=== PATIENT | male | born 1945 | race African-American/Black ===

== ENCOUNTER 2017-02-28 18:14 | Emergency (ER) | payer MEDICARE ==
[2017-02-28] MEDS ORDERED: MIDAZOLAM 2 MG/2 ML INJ ONE (18:28)
[2017-02-28] MEDS ORDERED: MIDAZOLAM 2 MG/2 ML INJ IV ONE (18:29)
[2017-02-28] MEDS ORDERED: NORMAL SALINE 1000 ML 1,000 ML IV ONE (18:29)
[2017-02-28 18:38] LABS: INTERNATIONAL RATION (INR) 1.01; PARTIAL THROMBOPLASTIN TIME 28.7 SEC (23.5-35.8)
--- NOTE | 2017-02-28 18:42 | ER Document Report ---
ED Neuro Symptoms/Deficit - General Stated Complaint: POSSIBLE SEIZURE Time Seen by Provider: 02/28/17 18:20 Mode of Arrival: Medic Information source: Emergency Med Personnel - [facility] Notes: 69-year-old -[place] male presents unresponsive. Apparently he was found by somebody at his house unresponsive. There was a heater on and something melting on top of it. It is reported he was completely unresponsive with dilated left pupil. Had complete left-sided weakness. Reported initially with a GCS of 3. We have no further history past or present otherwise. - Related Data Allergies/Adverse Reactions: No Known Allergies Allergy (Unverified 02/28/17 22:16) Past Medical History - Social History Smoking Status: Unknown if Ever Smoked Family History: Other - Unknown as patient completely unresponsive. Review of Systems - Review of Systems -: Yes ROS unobtainable due to patient's medical condition - Nonverbal and unresponsive Physical Exam - Vital signs Notes: Initial blood pressure 164/120. Oxygen saturation 95% on room air, heart rate 95, respiratory rate 14 blood sugar 145. Accesses a left AC 18-gauge. - Notes Notes: GENERAL: VS as per nursing doc. patient is a thin somewhat emaciated - [place] male. He is completely unresponsive to tactile verbal stimuli. He does have spontaneous eye opening with some abnormal flexion to painful stimuli and he is nonverbal. This is consistent with a GCS of 5. HEAD: Atraumatic, normocephalic. EYES: His gaze is fixed to the right side. Sclera anicteric ENT: Mucous membranes are somewhat dry. There is no obvious discoloration. No significant gag reflex. Wasting of facial musculature noted there is a flaccid left face. NECK: Thin, trachea is midline LUNGS: Rhonchi are noted, patient is hypoventilatory. HEART: Normal S1S2. Regular rate and rhythm without murmurs. Equal peripheral pulses. ABDOMEN: Soft, scaphoid, no obvious mass EXTREMITIES: No significant range of motion limitations. No edema. NEUROLOGICAL: GCS 5, flaccid left side noted. There is stiffness with range of motion of the right upper extremity right lower extremity. There was some right sided clonus noted. Appears to have neglect of the left side. PSYCH: Unresponsive SKIN: Warm, Dry, no cyanosis. Course - Re-evaluation Re-evalutation: 02/28/17 18:46 Spoke with the radiologist. Patient has a large right sided middle cerebral artery distribution CVA and process but without hemorrhage. He is therefore not a candidate as well there is no known last normal as the patient was found in this state. 02/28/17 18:49 spoke with [facility] and they will contact me back after they get a hold of the neuro unit. 02/28/17 19:[address] Rafiq Coronel from [facility]. They accept the patient for transfer. We still have no further information on this patient and patient is deemed an emergent transfer for further neurologic care.. He is care air will be transferring the patient. He did have a period of hypotension which quickly resolved to discontinuation of propofol as well as a fluid bolus. Reexamination shows the patient with bounding equal pulses. Breath sounds are decreased but symmetrical bilaterally. X-ray shows changes that appear emphysematous in nature. - Laboratory Result Diagrams: 02/28/17 18:18 02/28/17 18:18 - Diagnostic Test Radiology reviewed: Image reviewed, Reports reviewed - CT showed what appears to be a developing large right MCA distribution infarct - EKG Interpretation by Me EKG shows normal: Sinus rhythm - Heart rate 84, no clear ischemia. QTC 525, QRS normal duration Procedures - Intubation Orotracheal Airway evaluation: Normal anatomy, Neck immobility Intubation method: Orotracheal Blade type: Olsen Blade size: 4 Equipment used: Glidescope ETT size: 7.5 ETT secured at: Gums ETT secured at (cm): 23 Breath Sounds after Intubation: Equal End tidal CO2 confirmed: Yes Post Intubation Xray: Yes - X-ray pending but ordered Critical Care Note - Critical Care Note Total time excluding time spent on procedures (mins): 40 - This includes time spent on consultation with transferring ICU physician, repetitive evaluations, stabilization of hemodynamic instability. Discharge - Discharge Clinical Impression: CVA (cerebral vascular accident), Renal insufficiency Condition: Critical Disposition: [facility]
[2017-02-28 18:46] LABS: ABSOLUTE LYMPHOCYTES (AUTO) 1.4 10^3/uL (0.5-4.7); ABSOLUTE MONOCYTES (AUTO) 0.7 10^3/uL (0.1-1.4); BASOPHILS % (AUTO) 0.4 % (0-2); EOSINOPHILS % (AUTO) 0.1 % (0-6); HEMATOCRIT 44.4 % (37.9-51.0); HEMOGLOBIN 14.9 g/dL (13.5-17.0); LYMPHOCYTES % (AUTO) 19.2 % (13-45); MEAN CORPUSCULAR HEMOGLOBIN 29.2 pg (27.0-33.4); MEAN CORPUSCULAR HGB CONC 33.6 g/dL (32.0-36.0); MEAN CORPUSCULAR VOLUME 87 fl (80-97); MONOCYTES % (AUTO) 10.1 % (3-13); PLATELET COUNT 227 10^3/uL (150-450); RED BLOOD COUNT 5.11 10^6/uL (4.35-5.55); RED CELL DISTRIBUTION WIDTH 14.4 % (11.5-14.0); SEGMENTED NEUTROPHILS % (AUTO) 70.2 % (42-78); TOTAL CELLS COUNTED % (AUTO) 100 %; WHITE BLOOD COUNT 7.2 10^3/uL (4.0-10.5)
[2017-02-28] MEDS: PROPOFOL 100 ML IV PRN ×3 (18:51→19:26)
--- NOTE | 2017-02-28 18:54 | RADIOLOGY REPORT (SQ) ---
EXAM DESCRIPTION: CT HEAD WITHOUT COMPLETED DATE/TIME: 02/28/2017 6:41 pm REASON FOR STUDY: bed 3 stroke alert (intubated) COMPARISON: None. TECHNIQUE: Axial images acquired through the brain without intravenous contrast. Images reviewed wi th bone, brain and subdural windows. Images stored on PACS. All CT scanners at this facility use dose modulation, iterative reconstruction, and/or weight based d osing when appropriate to reduce radiation dose to as low as reasonably achievable (ALARA). [facility]: Dose Right [facility]: CareDose [facility]: Dose Right [facility]: Teradose 4D [facility]: JustInvesting RADIATION DOSE: mGy. LIMITATIONS: None. FINDINGS: VENTRICLES: Prominent. CEREBRUM: No acute hemorrhage. Faint hypodense area along the right MCA distribution concerning for developing infarction. Old appearing lacunar infarcts of the basal ganglia. Atrophic and microvascu lar ischemic changes. CEREBELLUM: No masses. No hemorrhage. No alteration of density. No evidence for acute infarction. EXTRAAXIAL SPACES: Mild age-related involutional change. No fluid collections. No masses. ORBITS AND GLOBE: No intra- or extraconal masses. Normal contour of globe without masses. CALVARIUM: No fracture. PARANASAL SINUSES: No fluid or mucosal thickening. SOFT TISSUES: Intubated. OTHER: Report called to Dr. tena at the time of study as stroke alert. IMPRESSION: No hemorrhage. The appearance concerning for developing infarction right MCA distributi on. EVIDENCE OF ACUTE STROKE: Yes report called. TECHNICAL DOCUMENTATION: JOB ID: [id number] Quality ID # [id number]: Final reports with documentation of one or more dose reduction techniques (e.g., Au tomated exposure control, adjustment of the mA and/or kV according to patient size, use of iterative reconstruction technique) 2010 [employer]- All Rights Reserved
[2017-02-28 19:10] LABS: ALANINE AMINOTRANSFERASE 39 U/L (21-72); ALKALINE PHOSPHATASE 61 U/L (38-126); ANION GAP 9 (5-19); ASPARTATE AMINO TRANSFERASE 47 U/L (17-59); BILIRUBIN,DIRECT 0.3 mg/dL (0.0-0.4); BLOOD UREA NITROGEN 44 mg/dL (7-20); CALCIUM 10.1 mg/dL (8.4-10.2); CARBON DIOXIDE 31 mmol/L (22-30); CHLORIDE 100 mmol/L (98-107); CREATINE KINASE 185 U/L (55-170); GLUCOSE 149 mg/dL (75-110); POTASSIUM 4.4 mmol/L (3.6-5.0); TOTAL PROTEIN 7.6 g/dL (6.3-8.2)
[2017-02-28 19:12] LABS: ALCOHOL < 10 mg/dL (NONE DETECTED)
[2017-02-28 19:17] LABS: CREATINE KINASE MB 1.22 ng/mL (<4.55)
[2017-02-28 19:26] LABS: TROPONIN I 0.053 ng/mL
--- NOTE | 2017-02-28 19:30 | EKG REPORT ---
SEVERITY:- ABNORMAL ECG - SINUS RHYTHM BORDERLINE T ABNORMALITIES, ANT-LAT LEADS PROLONGED QT INTERVAL : Confirmed by: Maria Isabel Guillen 28-Feb-2017 19:29:14
--- NOTE | 2017-02-28 19:32 | RADIOLOGY REPORT (SQ) ---
EXAM DESCRIPTION: CHEST SINGLE VIEW COMPLETED DATE/TIME: 02/28/2017 6:48 pm REASON FOR STUDY: bed 3 stroke alert (intubated) COMPARISON: None. EXAM PARAMETERS: NUMBER OF VIEWS: One view. TECHNIQUE: Single frontal radiographic view of the chest acquired. RADIATION DOSE: NA LIMITATIONS: None. FINDINGS: LUNGS AND PLEURA: Hyperinflation. Marked lucencies in the upper lobes which have the appe arance of large bullae. No focal infiltrates. No pleural effusion. MEDIASTINUM AND HILAR STRUCTURES: No masses. Contour normal. HEART AND VASCULAR STRUCTURES: Heart normal in size. Normal vasculature. BONES: No acute findings. HARDWARE: Endotracheal tube with the tip located 5.5 cm proximal to the andrea. OTHER: No other significant finding. IMPRESSION: 1. ENDOTRACHEAL TUBE APPEARS TO BE IN SATISFACTORY POSITION. 2. HYPERINFLATION WITH PROMINENT LUCENCIES IN THE LUNG APICES MOST LIKELY DUE TO LARGE BULLAE. DUE T O THE SIGNIFICANT LUCENCY, CANNOT ENTIRELY EXCLUDE PNEUMOTHORAX ALTHOUGH LESS LIKELY. RECOMMEND FOLL OWUP CT OF THE CHEST. TECHNICAL DOCUMENTATION: JOB ID: [id number]- All Rights Reserved
[2017-02-28] MEDS ORDERED: SUCCINYLCHOLINE CHLORIDE INJ 200 MG/10 ML VIAL ONE (21:56)
[2017-02-28 22:19] VITALS: BP 163/111
[2017-02-28] MEDS ORDERED: ETOMIDATE INJ/PF 20 MG/10 ML SDV IV ONE (22:22)
[2017-02-28] MEDS ORDERED: SUCCINYLCHOLINE CHLORIDE INJ 200 MG/10 ML VIAL IV ONE (22:23)
[2017-02-28] MEDS ORDERED: NORMAL SALINE 1000 ML 2,000 ML IV ONE (22:23)
== END 2017-02-28 20:40 | disposition short-term general hospital (02) ==
LOC: EDBD → ER 18:14 → MERGE 18:14 → ER 20:40
PROC: 0BH17EZ Insertion of Endotracheal Airway into Trachea, Via Natural or Artificial Opening (ICD-10-PCS; principal; 2017-02-28)
DX: I63.9 Cerebral infarction, unspecified (principal); N28.9 Disorder of kidney and ureter, unspecified
CPT/HCPCS: 31500; 93005; 99291; 36415; 87040; 82553; 80307; 82550; 83735; 85025; 85610; 85730; 87077; 80053; 84484; 83605; 71045; 70450; 93010; J2250; J2704; J0330; J7030

== ENCOUNTER 2017-05-23 19:50 | Inpatient (IN) | payer MEDICARE ==
[2017-05-23] MEDS ORDERED: ACETAMINOPHEN 650 MG SUPP.RECT PR ONE (20:10)
[2017-05-23] MEDS ORDERED: ALBUTEROL SULFATE 0.083% NEB 2.5 MG/3 ML AMPUL NEB ONE (20:14)
[2017-05-23] MEDS ORDERED: NORMAL SALINE 1000 ML 1,000 ML IV ONE (20:14)
[2017-05-23 20:48] LABS: INTERNATIONAL RATION (INR) 1.18; PROTHROMBIN TIME 15.6 SEC (11.4-15.4)
[2017-05-23 20:50] LABS: VENOUS BLOOD BASE EXCESS 8.5 mmol/L; VENOUS BLOOD HCO3 33.9 mmol/L (20-32); VENOUS BLOOD PCO2 48.7 mmHg (35-63); VENOUS BLOOD PH 7.46 (7.30-7.42)
--- NOTE | 2017-05-23 20:54 | RADIOLOGY REPORT (SQ) ---
EXAM DESCRIPTION: CHEST SINGLE VIEW COMPLETED DATE/TIME: 05/23/2017 8:24 pm REASON FOR STUDY: db COMPARISON: 02/25/2009 EXAM PARAMETERS: NUMBER OF VIEWS: One view. TECHNIQUE: Single frontal radiographic view of the chest acquired. RADIATION DOSE: NA LIMITATIONS: None. FINDINGS: LUNGS AND PLEURA: There is marked lucency in the upper lung pinon. The lungs are hyperex panded. A very large bulla is present in the left apex. Chronic changes are suggested in the right base. No acute infiltrate is appreciated. MEDIASTINUM AND HILAR STRUCTURES: No masses. Contour normal. HEART AND VASCULAR STRUCTURES: Heart normal in size. Normal vasculature. BONES: No acute findings. HARDWARE: Tracheostomy tube. OTHER: No other significant finding. 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 No acute cardiopulmonar y disease is appreciated. TECHNICAL DOCUMENTATION: JOB ID: [id number] [employer]- All Rights Reserved Reading location - IP/workstation name: [email or web address]
[2017-05-23 20:55] LABS: HEMATOCRIT 29.9 % (37.9-51.0); HEMOGLOBIN 9.8 g/dL (13.5-17.0); MEAN CORPUSCULAR HEMOGLOBIN 28.8 pg (27.0-33.4); MEAN CORPUSCULAR HGB CONC 32.8 g/dL (32.0-36.0); MEAN CORPUSCULAR VOLUME 88 fl (80-97); PLATELET COUNT 443 10^3/uL (150-450); RED BLOOD COUNT 3.41 10^6/uL (4.35-5.55); WHITE BLOOD COUNT 22.6 10^3/uL (4.0-10.5)
[2017-05-23 20:57] LABS: ALANINE AMINOTRANSFERASE 36 U/L (21-72); ALBUMIN 3.4 g/dL (3.5-5.0); ALKALINE PHOSPHATASE 88 U/L (38-126); ANION GAP 5 (5-19); ASPARTATE AMINO TRANSFERASE 38 U/L (17-59); BILIRUBIN,DIRECT 0.5 mg/dL (0.0-0.4); BILIRUBIN,TOTAL 0.7 mg/dL (0.2-1.3); BLOOD UREA NITROGEN 31 mg/dL (7-20); CALCIUM 9.5 mg/dL (8.4-10.2); CARBON DIOXIDE 37 mmol/L (22-30); CHLORIDE 91 mmol/L (98-107); GLUCOSE 153 mg/dL (75-110); SODIUM 133.1 mmol/L (137-145); TOTAL PROTEIN 8.1 g/dL (6.3-8.2)
[2017-05-23 21:09] LABS: ABSOLUTE LYMPHOCYTES# (MANUAL) 3.6 10^3/uL (0.5-4.7); ABSOLUTE MONOCYTES # (MANUAL) 0.9 10^3/uL (0.1-1.4); ABSOLUTE NEUTROPHILS# (MANUAL) 18.1 10^3/uL (1.7-8.2); BASOPHILS % (MANUAL) 0 % (0-2); EOSINOPHILS % (MANUAL) 0 % (0-6); LYMPHOCYTES % (MANUAL) 16 % (13-45); MONOCYTES % (MANUAL) 4 % (3-13); SEGMENTED NEUTROPHILS % (MAN) 80 % (42-78); TOTAL CELLS COUNTED 100
[2017-05-23 21:11] LABS: OVALOCYTES SLIGHT; PLATELET COMMENT ADEQUATE; PLATELET LARGE PRESENT; POLYCHROMASIA SLIGHT
--- NOTE | 2017-05-23 21:18 | EKG REPORT ---
SEVERITY:- ABNORMAL ECG - SINUS TACHYCARDIA PROBABLE INFERIOR INFARCT, OLD : Confirmed by: Maria Isabel Guillen 23-May-2017 21:17:56
[2017-05-23 22:04] LABS: AMORPHOUS SEDIMENT,URINE TRACE /HPF; APPEARANCE,URINE SLIGHTLY-CLOUDY; BILIRUBIN,URINE NEGATIVE (NEGATIVE); GLUCOSE, URINE NEGATIVE (NEGATIVE); KETONES,URINE NEGATIVE (NEGATIVE); LEUKOCYTE ESTERASE,URINE SMALL (NEGATIVE); NITRITE,URINE NEGATIVE (NEGATIVE); PROTEIN,URINE 30 mg/dL (NEGATIVE); URINE SPECIFIC GRAVITY 1.015
[2017-05-23] MEDS ORDERED: CEFTRIAXONE INJ 1000 MG VIAL IV ONE (22:04)
[2017-05-23] MEDS ORDERED: IPRATROPIUM/ALBUTEROL 0.5-2.5 MG/3 ML AMPUL NEB ONE (22:05)
[2017-05-23 22:08] LABS: COLOR,URINE YELLOW
[2017-05-23] MEDS ORDERED: CEFEPIME 1 GM/D5W RTU 1 GM/50 ML RTUPB IV ONE (22:15)
[2017-05-23] MEDS ORDERED: VANCOMYCIN HCL INJ 1000 MG VIAL IV ONE (22:17)
--- NOTE | 2017-05-23 23:18 | ER Document Report ---
ED Fever - General Chief Complaint: Fever Stated Complaint: FEVER Time Seen by Provider: 05/23/17 20:07 Mode of Arrival: Stretcher Information source: Emergency Med Personnel, Outside Facility Records TRAVEL OUTSIDE OF THE [place] IN LAST 30 DAYS: No - HPI Patient complains to provider of: Fever, respiratory distress Onset: This evening Onset/Duration: Gradual Associated symptoms: Productive cough, Fever Notes: Patient is a 71-year-old male [facility] for fever and respiratory distress, patient is nonverbal secondary to previous CVA and cannot provide any additional information - Related Data Allergies/Adverse Reactions: No Known Allergies Allergy (Unverified 07/31/10 16:58) Past Medical History - General Information source: Emergency Med Personnel, Outside Facility Records - Social History Smoking Status: Unknown if Ever Smoked Chew tobacco use (# tins/day): No Frequency of alcohol use: None Drug Abuse: None Family History: Other - Unknown as patient completely unresponsive. Patient has suicidal ideation: No Patient has homicidal ideation: No Renal/ Medical History: Denies: Hx Peritoneal Dialysis Review of Systems - Review of Systems -: Yes ROS unobtainable due to patient's medical condition Constitutional: Fever Respiratory: See HPI, Cough Physical Exam - Vital signs Vitals: Temp Resp Pulse Ox 104 F H 37 H 93 05/23/17 19:55 05/23/17 19:55 05/23/17 19:55 Interpretation: Tachycardic, Tachypneic, Febrile - General General appearance: Lethargic In distress: Moderate - HEENT Head: Atraumatic Eyes: Normal Conjunctiva: Normal Nasal: Purulent discharge Mucous membranes: Dry Pharynx: Normal Neck: Normal - Respiratory Respiratory status: Respiratory distress, Tachypnea Chest status: Nontender Breath sounds: Productive cough, Rhonchi Chest palpation: Normal - Cardiovascular Rhythm: Regular, Tachycardia - Abdominal Inspection: Normal - Back Back: Normal - Extremities General upper extremity: Normal inspection General lower extremity: Normal inspection - Neurological Veronica Coma Scale Eye Opening: Spontaneous Veronica Coma Scale Verbal: None Veronica Coma Scale Motor: Withdraws to Pain [place] Coma Scale Total: 9 - Skin Skin Temperature: Hot Skin Moisture: Moist Skin Color: Normal Course - Re-evaluation Re-evalutation: 05/23/17 23:53 Patient with leukocytosis, likely aspiration pneumonia reaction, discussed with hospitalist who agrees to admit for further evaluation and treatment - Vital Signs Vital signs: Temp Pulse Resp BP Pulse Ox 100.4 F 27 H 115/77 99 05/23/17 22:04 05/23/17 21:01 05/23/17 21:00 05/23/17 21:34 - Laboratory Result Diagrams: 05/23/17 20:15 05/23/17 20:15 Laboratory results interpreted by me: 05/23/17 05/23/17 05/23/17 20:15 20:15 20:15 WBC 22.6 H RBC 3.41 L Hgb 9.8 L Hct 29.9 L RDW 15.0 H Seg Neuts % (Manual) 80 H Abs Neuts (Manual) 18.1 H PT 15.6 H VBG pH VBG HCO3 Sodium 133.1 L Chloride 91 L Carbon Dioxide 37 H BUN 31 H Glucose 153 H Direct Bilirubin 0.5 H Albumin 3.4 L Urine Protein Urine Urobilinogen Ur Leukocyte Esterase Urine Ascorbic Acid 05/23/17 05/23/17 20:30 21:42 WBC RBC Hgb Hct RDW Seg Neuts % (Manual) Abs Neuts (Manual) PT VBG pH 7.46 H VBG HCO3 33.9 H Sodium Chloride Carbon Dioxide BUN Glucose Direct Bilirubin Albumin Urine Protein 30 H Urine Urobilinogen 2.0 H Ur Leukocyte Esterase SMALL H Urine Ascorbic Acid 40 H - Diagnostic Test Radiology reviewed: Image reviewed, Reports reviewed Discharge - Discharge Clinical Impression: Aspiration pneumonia Qualifiers: Aspiration pneumonia type: unspecified Laterality: unspecified laterality Lung location: unspecified part of lung Qualified Code(s): J69.0 - Pneumonitis due to inhalation of food and vomit UTI (urinary tract infection) Qualifiers: Urinary tract infection type: catheter-associated UTI Indwelling urinary catheter type: indwelling urethral catheter Encounter type: initial encounter Qualified Code(s): T83.511A - Infection and inflammatory reaction due to indwelling urethral catheter, initial encounter; N39.0 - Urinary tract infection , site not specified; N39.0 - Urinary tract infection, site not specified Sepsis Qualifiers: Sepsis type: sepsis due to unspecified organism Qualified Code(s): A41.9 - Sepsis, unspecified organism Condition: Serious Disposition: ADMITTED INPATIENT Admitting Provider: Hospitalist Unit Admitted: [facility]
[2017-05-23] MEDS ORDERED: ACETAMINOPHEN 325 MG TABLET PEG PRN (23:40)
[2017-05-23] MEDS ORDERED: DEXTROSE 40% GEL 15 GM TUBE PO PRN ×2 (23:40)
[2017-05-23] MEDS ORDERED: GLUCAGON,HUMAN RECOMB 1 MG INJ SUBCUT PRN (23:40)
[2017-05-23] MEDS ORDERED: DEXTROSE 50%-WATER 25 GM/50 ML DISP.SYRIN IV PRN ×2 (23:40)
[2017-05-24] MEDS: IPRATROPIUM/ALBUTEROL 0.5-2.5 MG/3 ML AMPUL NEB SCH ×4 (02:10→20:23)
[2017-05-24] MEDS: NORMAL SALINE 1000 ML 1,000 ML IV PRN ×3 (02:20→17:55)
[2017-05-24] MEDS: HEPARIN SOD (PORCINE) 5,000 UNIT/ML 1 ML SYRINGE SUBCUT SCH ×3 (05:35→21:38)
--- NOTE | 2017-05-24 05:52 | PDOC H&P ---
History of Present Illness Admission Date/PCP: 05/23/17 23:36 Patient complains of: Fever History of Present Illness: MASSIEL MCCORMACK JR is a 71 year old male with a past medical history of hypertension CVA with residual left-sided neglect, expressive aphasia, status post PEG and trach who is a [facility]term [place] [facility] resident presenting with fever and copious tracheostomy secretions. In the emergency room he is nonverbal and unable to provide history. Workup revealed a leukocytosis and contraction alkalosis. He started on empiric antibiotics and IV fluids and referred the hospitalist for admission. Past Medical History Cardiac Medical History: Reports: Hypertension Pulmonary Medical History: Reports: Bronchitis, Chronic Obstructive Pulmonary Disease (COPD) EENT Medical History: Reports: Other - Tracheostomy Neurological Medical History: Reports: Ischemic CVA Endocrine Medical History: Reports: None Renal/ Medical History: Reports: None Malignancy Medical History: Reports: None GI Medical History: Reports: None Musculoskeltal Medical History: Reports: Other - Left hemiparesis, with global muscular atrophy Skin Medical History: Reports: None Psychiatric Medical History: Reports: None Traumatic Medical History: Reports: None Hematology: Reports: None Infectious Medical History: Reports: None Social History Information Source: [facility] Records Lives with: Long Term Smoking Status: Former Smoker Frequency of Alcohol Use: None Hx Recreational Drug Use: Yes Drugs: Cocaine Hx Prescription Drug Abuse: No Family History Family History: CVA, Other - Unknown as patient completely unresponsive. Parental Family History Reviewed: Yes Children Family History Reviewed: Yes Sibling(s) Family History Reviewed.: Yes Medication/Allergy Allergies/Adverse Reactions: Penicillins Allergy (Verified 05/24/17 04:18) Review of Systems ROS unobtainable: Due to mental status Physical Exam Vital Signs: Temp Pulse Resp BP Pulse Ox 97.8 F 118 H 22 H 156/93 H 98 05/24/17 03:32 05/24/17 03:32 05/24/17 03:32 05/24/17 03:32 05/24/17 04:00 Intake & Output 05/22/17 05/23/17 05/24/17 11:59 11:59 11:59 Weight 58 kg General appearance: PRESENT: cooperative, mild distress, thin, other - Temporal wasting and generalized cachexia, following simple commands, Head exam: PRESENT: atraumatic, normocephalic Eye exam: PRESENT: other - Right lateral gaze with left-sided neglect Ear exam: PRESENT: normal external ear exam Mouth exam: PRESENT: dry mucosa Neck exam: PRESENT: tracheostomy. ABSENT: carotid bruit, JVD, lymphadenopathy, thyromegaly, tracheal deviation Respiratory exam: PRESENT: accessory muscle use, clear to auscultation anne, crackles, decreased breath sounds, prolonged expiratory phas, tachypnea. ABSENT : rales, rhonchi, wheezes Pulses: PRESENT: normal dorsalis pedis pul Vascular exam: PRESENT: normal capillary refill GI/Abdominal exam: PRESENT: normal bowel sounds, soft. ABSENT: distended, guarding, mass, organolmegaly, rebound, tenderness Rectal exam: PRESENT: deferred Extremities exam: PRESENT: full ROM. ABSENT: calf tenderness, clubbing, pedal edema Neurological exam: PRESENT: alert, awake, oriented to person, CN II-XII grossly intact, aphasic Psychiatric exam: PRESENT: appropriate affect, normal mood. ABSENT: homicidal ideation, suicidal ideation Skin exam: PRESENT: dry, intact, warm. 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 No acute cardiopulmonary disease is appreciated. Assessment & Plan - Diagnosis (1) Aspiration pneumonia Qualifiers: Aspiration pneumonia type: unspecified Laterality: unspecified laterality Lung location: unspecified part of lung Qualified Code(s): J69.0 - Pneumonitis due to inhalation of food and vomit Is this a current diagnosis for this admission?: Yes Plan: Tube feeds held for residual, empiric antibiotics including coverage for Pseudomonas given history. Aggressive pulmonary toilet. Follow-up CBC and blood culture (2) Metabolic alkalosis Is this a current diagnosis for this admission?: Yes Plan: Low chloride, elevated bicarb and BUN. Normal saline challenge reevaluate chemistry. (3) Sepsis Qualifiers: Sepsis type: sepsis due to unspecified organism Qualified Code(s): A41.9 - Sepsis, unspecified organism Is this a current diagnosis for this admission?: Yes Plan: Correction of #1, supportive measures. Follow-up CBC blood and urine culture (4) UTI (urinary tract infection) Qualifiers: Urinary tract infection type: catheter-associated UTI Indwelling urinary catheter type: indwelling urethral catheter Encounter type: initial encounter Qualified Code(s): T83.511A - Infection and inflammatory reaction due to indwelling urethral catheter, initial encounter; N39.0 - Urinary tract infection , site not specified; N39.0 - Urinary tract infection, site not specified Is this a current diagnosis for this admission?: Yes Plan: Unclear UTI versus colonization, follow-up urine culture - Time Time Spent: 30 to 50 Minutes - Inpatient Certification Medical Necessity: Need Close Monitoring Due to Risk of Patient Decompensation
[2017-05-24 07:57] LABS: ABSOLUTE LYMPHOCYTES (AUTO) 1.8 10^3/uL (0.5-4.7); ABSOLUTE MONOCYTES (AUTO) 1.2 10^3/uL (0.1-1.4); ABSOLUTE NEUT (AUTO) 13.7 10^3/uL (1.7-8.2); BASOPHILS % (AUTO) 0.2 % (0-2); EOSINOPHILS % (AUTO) 0.2 % (0-6); HEMATOCRIT 32.1 % (37.9-51.0); HEMOGLOBIN 10.3 g/dL (13.5-17.0); LYMPHOCYTES % (AUTO) 10.7 % (13-45); MEAN CORPUSCULAR HEMOGLOBIN 28.6 pg (27.0-33.4); MEAN CORPUSCULAR HGB CONC 32.2 g/dL (32.0-36.0); MEAN CORPUSCULAR VOLUME 89 fl (80-97); PLATELET COUNT 389 10^3/uL (150-450); RED BLOOD COUNT 3.61 10^6/uL (4.35-5.55); RED CELL DISTRIBUTION WIDTH 15.1 % (11.5-14.0); SEGMENTED NEUTROPHILS % (AUTO) 81.9 % (42-78); TOTAL CELLS COUNTED % (AUTO) 100 %; WHITE BLOOD COUNT 16.8 10^3/uL (4.0-10.5)
[2017-05-24 08:02] LABS: ALANINE AMINOTRANSFERASE 35 U/L (21-72); ALKALINE PHOSPHATASE 82 U/L (38-126); ANION GAP 9 (5-19); ASPARTATE AMINO TRANSFERASE 26 U/L (17-59); BILIRUBIN,DIRECT 0.4 mg/dL (0.0-0.4); BILIRUBIN,TOTAL 0.8 mg/dL (0.2-1.3); BLOOD UREA NITROGEN 27 mg/dL (7-20); CALCIUM 9.5 mg/dL (8.4-10.2); CARBON DIOXIDE 33 mmol/L (22-30); CHLORIDE 97 mmol/L (98-107); GLUCOSE 119 mg/dL (75-110); POTASSIUM 4.1 mmol/L (3.6-5.0); SODIUM 139.1 mmol/L (137-145); TOTAL PROTEIN 7.2 g/dL (6.3-8.2)
[2017-05-24] MEDS ORDERED: NORMAL SALINE 1000 ML 1,000 ML IV PRN (08:34)
[2017-05-24] MEDS ORDERED: VANCOMYCIN HCL 0 MG in DEXTROSE 5%-WATER 250 ML IV NR (08:45)
[2017-05-24] MEDS ORDERED: CEFEPIME 2 GM/D5W RTU 2 GM/50 ML RTUPB IV SCH (08:45)
[2017-05-24] MEDS: METRONIDAZOLE 500 MG/NS RTU 100 ML IV SCH ×3 (09:39→20:27)
--- NOTE | 2017-05-24 09:55 | PDOC CONSULTATION ---
Consultation Consult Date: 05/24/17 Consult reason:: sacral decubitus History of Present Illness Admission Date/PCP: 05/23/17 23:36 History of Present Illness: MASSIEL MCCORMACK JR is a 71 year old male, [place] resident, who presented to the ER with increased tracheostomy secretions, contaction alkalosis and admitted for rehydratoin. His initial w/u is overall negative for an infectious process at this time. I have been consulted for evaluation and treatment of a large foul smelling sacral decubitus. Past Medical History Cardiac Medical History: Reports: Hypertension Pulmonary Medical History: Reports: Bronchitis, Chronic Obstructive Pulmonary Disease (COPD) EENT Medical History: Reports: Other - Tracheostomy Neurological Medical History: Reports: Ischemic CVA Endocrine Medical History: Reports: None Renal/ Medical History: Reports: None Malignancy Medical History: Reports: None GI Medical History: Reports: None Musculoskeltal Medical History: Reports: Other - Left hemiparesis, with global muscular atrophy Skin Medical History: Reports: None Psychiatric Medical History: Reports: None Traumatic Medical History: Reports: None Hematology: Reports: None, Other - Tracheostomy Infectious Medical History: Reports: None Social History Lives with: Group Home Smoking Status: Former Smoker Frequency of Alcohol Use: None Hx Recreational Drug Use: Yes Drugs: Cocaine Hx Prescription Drug Abuse: No Family History Family History: CVA, Other - Unknown as patient completely unresponsive. Parental Family History Reviewed: No - n/a Children Family History Reviewed: Unknown Sibling(s) Family History Reviewed.: Unknown Medication/Allergy Allergies/Adverse Reactions: Penicillins Allergy (Verified 05/24/17 04:18) Physical Exam Vital Signs: Temp Pulse Resp BP Pulse Ox 98.2 F 111 H 20 119/94 H 100 05/24/17 08:13 05/24/17 08:13 05/24/17 08:13 05/24/17 08:13 05/24/17 08:13 Intake & Output 05/23/17 05/24/17 05/25/17 06:59 06:59 06:59 Intake Total 600 Output Total 400 Balance 200 Weight 58 kg General appearance: PRESENT: mild distress, other - patient appears hemaciated and not resposnive with fixed gaze Head exam: PRESENT: atraumatic Mouth exam: PRESENT: moist Neck exam: PRESENT: tracheostomy - with large amount of secretions Respiratory exam: PRESENT: clear to auscultation anne Cardiovascular exam: PRESENT: RRR GI/Abdominal exam: PRESENT: normal bowel sounds, soft, other - G-tube in the LUQ Skin exam: PRESENT: warm, other - large 10 cm in diameter devitalized sacral skin with subcutaneous tunnelling and undermined tissue, heavy foul smell Results Laboratory Results: 05/24/17 07:29 05/24/17 07:29 05/24/17 05/24/17 07:29 07:29 WBC 16.8 H RBC 3.61 L Hgb 10.3 L Hct 32.1 L MCV 89 MCH 28.6 MCHC 32.2 RDW 15.1 H Plt Count 389 Seg Neutrophils % 81.9 H Lymphocytes % 10.7 L Monocytes % 7.0 Eosinophils % 0.2 Basophils % 0.2 Absolute Neutrophils 13.7 H Absolute Lymphocytes 1.8 Absolute Monocytes 1.2 Absolute Eosinophils 0.0 Absolute Basophils 0.0 Sodium 139.1 Potassium 4.1 Chloride 97 L Carbon Dioxide 33 H Anion Gap 9 BUN 27 H Creatinine 0.71 Est GFR ( Amer) > 60 Est GFR (Non-Af Amer) > 60 Glucose 119 H Calcium 9.5 Total Bilirubin 0.8 AST 26 ALT 35 Alkaline Phosphatase 82 Total Protein 7.2 Albumin 3.0 L Impressions: Chest X-Ray 05/23/17 20:08 IMPRESSION: 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 No acute cardiopulmonary disease is appreciated. Assessment & Plan - Diagnosis (2) Metabolic alkalosis Is this a current diagnosis for this admission?: Yes - Plan Summary Plan Summary: A/ [facility] resident, with PEG and tracheostomy Large sacral decubitus P/ Please, notify us when patient is medically stable and able to tolerate GA or IV sedation so we can proceed with debridment of the sacral decubitus Consent will have to be obtained from his family
[2017-05-24] MEDS ORDERED: CEFEPIME HCL 2 GM in DEXTROSE 5%-WATER 50 ML IV SCH (10:00)
[2017-05-24] MEDS ORDERED: CEFEPIME 1 GM/D5W RTU 1 GM/50 ML RTUPB IV SCH (10:00)
[2017-05-24] MEDS: CEFEPIME HCL 2 GM in NORMAL SALINE 100 ML IV SCH ×2 (10:13→22:50)
[2017-05-24] MEDS ORDERED: VANCOMYCIN HCL 500 MG in DEXTROSE 5%-WATER 100 ML IV ONE (12:00)
--- NOTE | 2017-05-24 12:06 | Physician Advisory Note ---
Physician Advisor ProgressNote .: Pursuant to the plan for [facility], I have reviewed the medical record for this patient. Physician Advisor Statement: Please consider documenting, if you agree: 1. "Acute on Chronic Hypoxemic Respiratory Failure, usually only needs __L O2 via trach collar now labored breathing on 7L O2" (unless pt needs 7L O2 at baseline, in which there is at least "Chronic Hypoxemic Resp Failure") - increased work of breathing is nicely documented by nursing this AM: "labored", "accessory muscle use") 2. "Coccyx decubitus ulcer, stage 3-4, POA*" (nursing documented it is "unstageable", which itself indicates it must be at least stage 3) 3. "Pneumonia, suspect aspiration due to " (was there any tube feed material in resp secretions? witnessed choking w/high TF residuals? Pt bedbound/debilitated/on TFs already, w/malnutrition evident) 4. "Possible sepsis, ruled out" OR: "Possible sepsis, POA*, due to ____ [PNA?], evidenced by tachycardia/ leukocytosis/ , with associated due to sepsis" [evidence of organ dysfunction, not caused by something else]) 5. "Severe COPD" by CXR 6. "Chronic Lt hemiplegia s/p CVA" 7. "suspected protein-calorie malnutrition [state mild, mod, or severe] with BMI 26.7, __, ____[?wt loss, ]" - already documented to be on TFs, with temporal wasting & cachexia ... , already call center trainer consulted... [& note clinical importance such as (D) prolonged wound healing time, (E) delayed infxn clearance] Status: Approp'ly Inpatient status. Already 1 MN in hospital care, still w/ labored breathing, accessory muscle use this AM, O2 at 7L per trach collar, needs operative decub debridement but not until medically stabilized & able to tolerate sedation. Continues to have prominent leukocytosis, evidence of intravascular volume depletion. Thanks! CK *POA = Present On Adm
--- NOTE | 2017-05-24 14:08 | PDOC PROGRESS REPORT ---
Subjective Progress Note for:: 05/24/17 Subjective:: Patient is not verbal, extremely debilitated, thin, poorly nourished At the most establishes in the eye contact Appears in mild respiratory distress with a trach collar He is lethargic looking acute chronically ill Reason For Visit: PNA UTI Physical Exam Vital Signs: Temp Pulse Resp BP Pulse Ox 99.3 F 98 20 107/71 92 05/24/17 12:25 05/24/17 12:25 05/24/17 12:25 05/24/17 12:25 05/24/17 13:10 Intake & Output 05/23/17 05/24/17 05/25/17 00:59 00:59 00:59 Intake Total 600 Output Total 800 Balance -200 Weight 58 kg General appearance: PRESENT: mild distress, thin, other - Chronically debilitated Head exam: PRESENT: atraumatic, normocephalic Eye exam: PRESENT: conjunctiva pale, PERRLA. ABSENT: scleral icterus Neck exam: ABSENT: carotid bruit, JVD, lymphadenopathy, thyromegaly Respiratory exam: PRESENT: decreased breath sounds, symmetrical, tachypnea. ABSENT: accessory muscle use, chest wall tenderness, rhonchi, wheezes Cardiovascular exam: PRESENT: tachycardia. ABSENT: gallop Pulses: PRESENT: normal dorsalis pedis pul GI/Abdominal exam: PRESENT: normal bowel sounds, soft. ABSENT: distended, guarding, mass, organolmegaly, rebound, tenderness Rectal exam: PRESENT: deferred Extremities exam: PRESENT: full ROM. ABSENT: calf tenderness, clubbing, pedal edema Neurological exam: PRESENT: other - Lethargic arousable Difficult to assess Psychiatric exam: PRESENT: other - Cannot assess because of altered mentation Skin exam: PRESENT: other - Presacral area stage IV decubitus ulcer about 6 cm in diameter covered with necrotic skin yellowish color No drainage visualized Foul-smelling Results Laboratory Results: 05/24/17 07:29 05/24/17 07:29 05/24/17 05/24/17 07:29 07:29 WBC 16.8 H RBC 3.61 L Hgb 10.3 L Hct 32.1 L MCV 89 MCH 28.6 MCHC 32.2 RDW 15.1 H Plt Count 389 Seg Neutrophils % 81.9 H Lymphocytes % 10.7 L Monocytes % 7.0 Eosinophils % 0.2 Basophils % 0.2 Absolute Neutrophils 13.7 H Absolute Lymphocytes 1.8 Absolute Monocytes 1.2 Absolute Eosinophils 0.0 Absolute Basophils 0.0 Sodium 139.1 Potassium 4.1 Chloride 97 L Carbon Dioxide 33 H Anion Gap 9 BUN 27 H Creatinine 0.71 Est GFR ( Amer) > 60 Est GFR (Non-Af Amer) > 60 Glucose 119 H Calcium 9.5 Total Bilirubin 0.8 AST 26 ALT 35 Alkaline Phosphatase 82 Total Protein 7.2 Albumin 3.0 L Impressions: Chest X-Ray 05/23/17 20:08 IMPRESSION: 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 No acute cardiopulmonary disease is appreciated. Assessment & Plan - Diagnosis (1) Acute and chronic respiratory failure Is this a current diagnosis for this admission?: Yes (2) Tracheostomy in place Is this a current diagnosis for this admission?: Yes (3) S/P percutaneous endoscopic gastrostomy (PEG) tube placement Is this a current diagnosis for this admission?: Yes (4) Aspiration pneumonia Qualifiers: Aspiration pneumonia type: unspecified Laterality: unspecified laterality Lung location: unspecified part of lung Qualified Code(s): J69.0 - Pneumonitis due to inhalation of food and vomit Is this a current diagnosis for this admission?: Yes (5) Decubitus ulcer of sacral region, stage 3 Is this a current diagnosis for this admission?: Yes (6) Sepsis Qualifiers: Sepsis type: sepsis due to unspecified organism Qualified Code(s): A41.9 - Sepsis, unspecified organism Is this a current diagnosis for this admission?: Yes (7) UTI (urinary tract infection) Qualifiers: Urinary tract infection type: catheter-associated UTI Indwelling urinary catheter type: indwelling urethral catheter Encounter type: initial encounter Qualified Code(s): T83.511A - Infection and inflammatory reaction due to indwelling urethral catheter, initial encounter; N39.0 - Urinary tract infection , site not specified; N39.0 - Urinary tract infection, site not specified Is this a current diagnosis for this admission?: Yes (8) Protein-calorie malnutrition, severe Is this a current diagnosis for this admission?: Yes - Time Time Spent with patient: Patient is septic Sepsis secondary to stage III-IV decubitus ulcer of the presacral area, likely aspiration pneumonia and UTI Initial chest x-ray was normal We will broaden spectrum of antibiotic and treat the patient with cefepime and vancomycin and Flagyl Continue hydration Patient is behind and IV fluids; will give another bolus of 1000 mL of normal saline and continue hydration at 200 mL/h We will hold tube feedings for 24 hours until sepsis is resolving Continue O2 supplementation Continue nebs Surgical consult was obtained; wound will need debridement when patient's condition is stable Repeat labs in a.m. Time Spent with patient: 25-34 minutes
--- NOTE | 2017-05-24 14:54 | Physician Advisory Note ---
Physician Advisor ProgressNote .: Pursuant to the plan for [facility], I have reviewed the medical record for this patient. Physician Advisor Statement: Additional documentation point request, when time allows (sorry I forgot to mention in note earlier today): 1. Please, at least once (+ in DCSummary), document likely reasons CXR negative for infiltrate with this pneumonia - due to volume depletion? early in course of PNA? ... Thanks! CK
[2017-05-24] MEDS: VANCOMYCIN HCL 500 MG in DEXTROSE 5%-WATER 100 ML IV SCH (21:39)
[2017-05-24] MEDS ORDERED: METOPROLOL TARTRATE PF/INJ 5 MG/5 ML SDV IV ONE (22:45)
[2017-05-25] MEDS ORDERED: METOPROLOL TARTRATE PF/INJ 5 MG/5 ML SDV IV ONE (01:00)
[2017-05-25] MEDS: IPRATROPIUM/ALBUTEROL 0.5-2.5 MG/3 ML AMPUL NEB SCH ×4 (01:16→20:01)
[2017-05-25] MEDS: METRONIDAZOLE 500 MG/NS RTU 100 ML IV SCH ×4 (02:28→20:56)
[2017-05-25] MEDS: HEPARIN SOD (PORCINE) 5,000 UNIT/ML 1 ML SYRINGE SUBCUT SCH ×3 (05:15→22:28)
[2017-05-25] MEDS: METOPROLOL TARTRATE PF/INJ 5 MG/5 ML SDV IV SCH ×3 (05:16→17:37)
[2017-05-25 05:52] LABS: ABSOLUTE BASOPHILS # (AUTO) 0.1 10^3/uL (0.0-0.2); ABSOLUTE LYMPHOCYTES (AUTO) 1.8 10^3/uL (0.5-4.7); ABSOLUTE MONOCYTES (AUTO) 1.8 10^3/uL (0.1-1.4); ABSOLUTE NEUT (AUTO) 15.1 10^3/uL (1.7-8.2); BASOPHILS % (AUTO) 0.4 % (0-2); EOSINOPHILS % (AUTO) 0.1 % (0-6); HEMATOCRIT 28.6 % (37.9-51.0); HEMOGLOBIN 9.1 g/dL (13.5-17.0); LYMPHOCYTES % (AUTO) 9.5 % (13-45); MEAN CORPUSCULAR HEMOGLOBIN 27.9 pg (27.0-33.4); MEAN CORPUSCULAR HGB CONC 31.7 g/dL (32.0-36.0); MEAN CORPUSCULAR VOLUME 88 fl (80-97); MONOCYTES % (AUTO) 9.8 % (3-13); PLATELET COUNT 316 10^3/uL (150-450); RED BLOOD COUNT 3.25 10^6/uL (4.35-5.55); RED CELL DISTRIBUTION WIDTH 14.8 % (11.5-14.0); SEGMENTED NEUTROPHILS % (AUTO) 80.2 % (42-78); TOTAL CELLS COUNTED % (AUTO) 100 %; WHITE BLOOD COUNT 18.8 10^3/uL (4.0-10.5)
[2017-05-25 06:07] LABS: ALANINE AMINOTRANSFERASE 25 U/L (21-72); ALBUMIN 2.9 g/dL (3.5-5.0); ALKALINE PHOSPHATASE 81 U/L (38-126); ANION GAP 9 (5-19); ASPARTATE AMINO TRANSFERASE 34 U/L (17-59); BILIRUBIN,DIRECT 0.7 mg/dL (0.0-0.4); BILIRUBIN,TOTAL 0.8 mg/dL (0.2-1.3); BLOOD UREA NITROGEN 22 mg/dL (7-20); CALCIUM 9.5 mg/dL (8.4-10.2); CARBON DIOXIDE 29 mmol/L (22-30); CHLORIDE 104 mmol/L (98-107); GLUCOSE 112 mg/dL (75-110); POTASSIUM 3.6 mmol/L (3.6-5.0); SODIUM 142.2 mmol/L (137-145); TOTAL PROTEIN 7.1 g/dL (6.3-8.2)
[2017-05-25] MEDS: VANCOMYCIN HCL 500 MG in DEXTROSE 5%-WATER 100 ML IV SCH ×2 (09:27→22:27)
[2017-05-25] MEDS ORDERED: METOPROLOL TARTRATE PF/INJ 5 MG/5 ML SDV IV SCH (10:00)
[2017-05-25] MEDS ORDERED: CEFEPIME HCL 2 GM in NORMAL SALINE 100 ML IV ONE (11:00)
[2017-05-25] MEDS ORDERED: FUROSEMIDE INJ/PF 20 MG/2 ML SDV IV ONE (18:01)
[2017-05-25] MEDS ORDERED: ACETAMINOPHEN 325 MG TABLET PEG PRN (18:10)
[2017-05-25] MEDS ORDERED: GUAIFENESIN SYRP 200 MG/10 ML UDC PEG PRN (18:10)
--- NOTE | 2017-05-25 18:10 | PDOC PROGRESS REPORT ---
Subjective Progress Note for:: 05/25/17 Subjective:: Patient's condition is unchanged Is not verbal He appears more tachypneic; with low-grade fever Oxygenation is still maintained with a trach collar at 40% Reason For Visit: PNA UTI Physical Exam Vital Signs: Temp Pulse Resp BP Pulse Ox 99.0 F 99 20 113/68 94 05/25/17 15:17 05/25/17 15:17 05/25/17 15:17 05/25/17 15:17 05/25/17 16:37 Intake & Output 05/24/17 05/25/17 05/26/17 00:59 00:59 00:59 Intake Total 2900 1200 Output Total 1200 375 Balance 1700 825 Weight 58 kg 63.1 kg General appearance: PRESENT: mild distress - Tachypnea, looks ill Not establishing an eye contact Thin Head exam: PRESENT: atraumatic, normocephalic Eye exam: PRESENT: conjunctiva pale, EOMI, PERRLA Neck exam: PRESENT: JVD. ABSENT: carotid bruit, lymphadenopathy, thyromegaly Respiratory exam: PRESENT: rhonchi - Bilaterally, tachypnea. ABSENT: accessory muscle use Cardiovascular exam: PRESENT: tachycardia. ABSENT: rubs, systolic murmur Pulses: PRESENT: normal dorsalis pedis pul Vascular exam: PRESENT: normal capillary refill GI/Abdominal exam: PRESENT: normal bowel sounds, soft. ABSENT: distended, guarding, mass, organolmegaly, rebound, tenderness Extremities exam: PRESENT: full ROM. ABSENT: calf tenderness, clubbing, pedal edema Neurological exam: PRESENT: awake Skin exam: PRESENT: dry, intact, warm. ABSENT: cyanosis, rash Results Laboratory Results: 05/25/17 05:00 05/25/17 05:00 05/25/17 05/25/17 05:00 05:00 WBC 18.8 H RBC 3.25 L Hgb 9.1 L Hct 28.6 L MCV 88 MCH 27.9 MCHC 31.7 L RDW 14.8 H Plt Count 316 Seg Neutrophils % 80.2 H Lymphocytes % 9.5 L Monocytes % 9.8 Eosinophils % 0.1 Basophils % 0.4 Absolute Neutrophils 15.1 H Absolute Lymphocytes 1.8 Absolute Monocytes 1.8 H Absolute Eosinophils 0.0 Absolute Basophils 0.1 Sodium 142.2 Potassium 3.6 Chloride 104 Carbon Dioxide 29 Anion Gap 9 BUN 22 H Creatinine 0.71 Est GFR ( Amer) > 60 Est GFR (Non-Af Amer) > 60 Glucose 112 H Calcium 9.5 Phosphorus 4.0 Magnesium 1.9 Total Bilirubin 0.8 AST 34 ALT 25 Alkaline Phosphatase 81 Total Protein 7.1 Albumin 2.9 L Impressions: Chest X-Ray 05/23/17 20:08 IMPRESSION: 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 No acute cardiopulmonary disease is appreciated. Assessment & Plan - Diagnosis (1) Acute and chronic respiratory failure Is this a current diagnosis for this admission?: Yes Plan: Likely secondary to pneumonia Initial chest x-ray did not show any infiltrate but copious secretions have been suctioned from tracheostomy Culture of tracheal aspirate was obtained 05/24/17 13:05 Gram Stain - Preliminary Tracheal Aspirate Sputum Culture - Preliminary Gram Negative Rods Gram Positive Cocci Clusters Normal Dalila Absent We will repeat chest x-ray in a.m. Patient does sound somewhat fluid overloaded; we will give him 20 mg of IV Lasix and discontinue IV fluids Patient is getting about 3500 mL of IV fluids per 24 hours with antibiotics (2) Tracheostomy in place Is this a current diagnosis for this admission?: Yes (3) S/P percutaneous endoscopic gastrostomy (PEG) tube placement Is this a current diagnosis for this admission?: Yes (4) Aspiration pneumonia Qualifiers: Aspiration pneumonia type: unspecified Laterality: unspecified laterality Lung location: unspecified part of lung Qualified Code(s): J69.0 - Pneumonitis due to inhalation of food and vomit Is this a current diagnosis for this admission?: Yes (5) Decubitus ulcer of sacral region, stage 3 Is this a current diagnosis for this admission?: Yes Plan: Gram-positive cocci grew from decubitus ulcer Identification sensitivity are pending (6) Sepsis Qualifiers: Sepsis type: sepsis due to unspecified organism Qualified Code(s): A41.9 - Sepsis, unspecified organism Is this a current diagnosis for this admission?: Yes (7) UTI (urinary tract infection) Qualifiers: Urinary tract infection type: catheter-associated UTI Indwelling urinary catheter type: indwelling urethral catheter Encounter type: initial encounter Qualified Code(s): T83.511A - Infection and inflammatory reaction due to indwelling urethral catheter, initial encounter; N39.0 - Urinary tract infection , site not specified; N39.0 - Urinary tract infection, site not specified Is this a current diagnosis for this admission?: Yes Plan: 05/24/17 11:46 Gram Stain - Preliminary Sacrum - Decubitis Ulcer Wound Culture - Preliminary Gram Positive Cocci Clusters 05/23/17 21:42 Urine Culture - Preliminary Catheterized Urine Gram Positive Cocci In Chains Gram-positive cocci grew from the urine (8) Protein-calorie malnutrition, severe Is this a current diagnosis for this admission?: Yes Plan: Will initiate tube feedings Obtain dietitian consult in a.m. Patient appears extremely undernourished - Time Time Spent with patient: Patient's condition is extremely poor Palliative care consult was obtained Continue present management Patient's condition is stable he may go to the OR for debridement of the sacral wound Time Spent with patient: 25-34 minutes
[2017-05-25] MEDS ORDERED: (PENDING PHARMACY ID) (Dextran 70/Hypromellose [Artificial Tears] 1 DROP) OU SCH (22:00)
[2017-05-25] MEDS: POLYVINYL ALCOHOL 1.4% OPH SOLN 15 ML OU SCH (22:28)
[2017-05-25 22:29] LABS: VANCOMYCIN,TROUGH 10.5 ug/mL (5.0-20.0)
[2017-05-25] MEDS: ATORVASTATIN CALCIUM 40 MG TABLET PEG SCH (22:29)
[2017-05-25] MEDS: METOPROLOL TARTRATE 25 MG TABLET PEG SCH (22:29)
[2017-05-26] MEDS: DILTIAZEM HCL 30 MG TABLET PEG SCH ×5 (00:41→23:28)
[2017-05-26] MEDS: IPRATROPIUM/ALBUTEROL 0.5-2.5 MG/3 ML AMPUL NEB SCH ×4 (01:43→20:01)
[2017-05-26] MEDS: POLYVINYL ALCOHOL 1.4% OPH SOLN 15 ML OU SCH ×6 (04:27→21:56)
[2017-05-26] MEDS: METRONIDAZOLE 500 MG/NS RTU 100 ML IV SCH ×4 (04:27→20:13)
[2017-05-26] MEDS: HEPARIN SOD (PORCINE) 5,000 UNIT/ML 1 ML SYRINGE SUBCUT SCH ×3 (06:25→21:56)
--- NOTE | 2017-05-26 08:49 | PDOC PROGRESS REPORT ---
Subjective Progress Note for:: 05/26/17 Subjective:: Patient's condition is unchanged Is not verbal Patient is still tachypneic On the monitor is in a sinus tachycardia Urine culture came back enterococcus VRE CT of the chest was performed yesterday and showed bullous emphysematous changes without clear infiltrate Blood culture is positive for gram-positive cocci Reason For Visit: PNA UTI Physical Exam Vital Signs: Temp Pulse Resp BP Pulse Ox 98.6 F 102 H 20 138/78 H 94 05/26/17 03:54 05/26/17 03:54 05/26/17 03:54 05/26/17 03:54 05/26/17 04:00 Intake & Output 05/25/17 05/26/17 05/27/17 00:59 00:59 00:59 Intake Total 2900 2030 665 Output Total 1200 700 100 Balance 1700 1330 565 Weight 58 kg 63.1 kg 63 kg General appearance: PRESENT: mild distress - Tachypnea, looks ill Not establishing an eye contact Thin Head exam: PRESENT: atraumatic, normocephalic Eye exam: PRESENT: conjunctiva pale, EOMI, PERRLA Neck exam: PRESENT: JVD. ABSENT: carotid bruit, lymphadenopathy, thyromegaly Respiratory exam: PRESENT: rhonchi - Bilaterally, tachypnea. ABSENT: accessory muscle use Cardiovascular exam: PRESENT: tachycardia. ABSENT: rubs, systolic murmur Pulses: PRESENT: normal dorsalis pedis pul Vascular exam: PRESENT: normal capillary refill GI/Abdominal exam: PRESENT: normal bowel sounds, soft. ABSENT: distended, guarding, mass, organolmegaly, rebound, tenderness Extremities exam: PRESENT: full ROM. ABSENT: calf tenderness, clubbing, pedal edema Neurological exam: PRESENT: awake Skin exam: PRESENT: dry, intact, warm. 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 No acute cardiopulmonary disease is appreciated. Assessment & Plan - Diagnosis (1) Acute and chronic respiratory failure Is this a current diagnosis for this admission?: Yes (2) Tracheostomy in place Is this a current diagnosis for this admission?: Yes (3) S/P percutaneous endoscopic gastrostomy (PEG) tube placement Is this a current diagnosis for this admission?: Yes (4) Aspiration pneumonia Qualifiers: Aspiration pneumonia type: unspecified Laterality: unspecified laterality Lung location: unspecified part of lung Qualified Code(s): J69.0 - Pneumonitis due to inhalation of food and vomit Is this a current diagnosis for this admission?: Yes (5) Decubitus ulcer of sacral region, stage 3 Is this a current diagnosis for this admission?: Yes (6) Sepsis Qualifiers: Sepsis type: sepsis due to unspecified organism Qualified Code(s): A41.9 - Sepsis, unspecified organism Is this a current diagnosis for this admission?: Yes Plan: 05/24/17 13:05 Gram Stain - Final Tracheal Aspirate Sputum Culture - Preliminary Gram Negative Rods Gram Positive Cocci Clusters Gram Negative Rods#2 Normal Dalila Absent 05/24/17 11:46 Gram Stain - Preliminary Sacrum - Decubitis Ulcer Wound Culture - Preliminary Gram Positive Cocci Clusters 05/23/17 21:42 Urine Culture - Final Catheterized Urine Vre (E.faecalis) 05/23/17 20:30 Blood Culture - Preliminary Blood Gram Positive Cocci At this time there is no evidence of pneumonia Sepsis likely secondary to large stage IV decubitus ulcer in the sacral area Sepsis secondary to [id number] cocci Sepsis secondary to VRE UTI Revised antibiotic management DC vancomycin and initiate linezolid IV Continue other antibiotics Continue IV fluids (7) UTI (urinary tract infection) Qualifiers: Urinary tract infection type: catheter-associated UTI Indwelling urinary catheter type: indwelling urethral catheter Encounter type: initial encounter Qualified Code(s): T83.511A - Infection and inflammatory reaction due to indwelling urethral catheter, initial encounter; N39.0 - Urinary tract infection , site not specified; N39.0 - Urinary tract infection, site not specified Is this a current diagnosis for this admission?: Yes (8) Protein-calorie malnutrition, severe Is this a current diagnosis for this admission?: Yes Plan: Resume tube feedings - Time Time Spent with patient: Patient's condition is certainly guarded Noted that the leukocytosis is still persistent Patient remains hemodynamically stable Time Spent with patient: 25-34 minutes
[2017-05-26] MEDS: POLYETHYLENE GLYCOL 3350 POWDER 17 GM/1 PACKET PEG SCH (09:41)
[2017-05-26] MEDS: ASCORBIC ACID 500 MG TABLET PEG SCH (09:42)
[2017-05-26] MEDS: METOPROLOL TARTRATE 25 MG TABLET PEG SCH ×2 (09:42→21:56)
[2017-05-26] MEDS: FOLIC ACID 1 MG TABLET PEG SCH (09:42)
[2017-05-26] MEDS: DOCUSATE SODIUM 100 MG CAPSULE PO SCH ×2 (09:42→18:41)
[2017-05-26] MEDS: CHOLECALCIFEROL (D3) 1,000 UNIT TABLET PEG SCH (09:42)
[2017-05-26] MEDS: LINEZOLID 300 ML IV SCH ×2 (09:43→21:56)
[2017-05-26] MEDS: MULTIVITAMIN ORAL LIQUID 60 ML PO SCH (09:44)
[2017-05-26] MEDS ORDERED: (PENDING PHARMACY ID) (Cholecalciferol (Vitamin D3) [Vitamin D3] 2,000 UNIT) PEG SCH (10:00)
[2017-05-26] MEDS ORDERED: MULTIVITAMIN TABLET PO SCH (10:00)
[2017-05-26 10:18] LABS: ABSOLUTE MONOCYTES (AUTO) 1.1 10^3/uL (0.1-1.4); ABSOLUTE NEUT (AUTO) 11.2 10^3/uL (1.7-8.2); BASOPHILS % (AUTO) 0.1 % (0-2); EOSINOPHILS % (AUTO) 0.1 % (0-6); HEMATOCRIT 25.5 % (37.9-51.0); HEMOGLOBIN 8.3 g/dL (13.5-17.0); LYMPHOCYTES % (AUTO) 7.6 % (13-45); MEAN CORPUSCULAR HEMOGLOBIN 28.7 pg (27.0-33.4); MEAN CORPUSCULAR HGB CONC 32.7 g/dL (32.0-36.0); MEAN CORPUSCULAR VOLUME 88 fl (80-97); PLATELET COUNT 366 10^3/uL (150-450); RED CELL DISTRIBUTION WIDTH 14.9 % (11.5-14.0); SEGMENTED NEUTROPHILS % (AUTO) 84.2 % (42-78); TOTAL CELLS COUNTED % (AUTO) 100 %; WHITE BLOOD COUNT 13.3 10^3/uL (4.0-10.5)
[2017-05-26 10:23] LABS: VENOUS BLOOD HCO3 26.5 mmol/L (20-32); VENOUS BLOOD PCO2 40.8 mmHg (35-63); VENOUS BLOOD PH 7.43 (7.30-7.42)
[2017-05-26] MEDS: CEFEPIME HCL 2 GM in DEXTROSE 5%-WATER 50 ML IV SCH ×4 (10:37→23:28)
[2017-05-26 10:40] LABS: ANION GAP 11 (5-19); BLOOD UREA NITROGEN 23 mg/dL (7-20); CALCIUM 9.7 mg/dL (8.4-10.2); CARBON DIOXIDE 28 mmol/L (22-30); CHLORIDE 106 mmol/L (98-107); GLUCOSE 149 mg/dL (75-110); POTASSIUM 3.3 mmol/L (3.6-5.0); SODIUM 144.6 mmol/L (137-145)
[2017-05-26] MEDS: ATORVASTATIN CALCIUM 40 MG TABLET PEG SCH (21:56)
[2017-05-27] MEDS: IPRATROPIUM/ALBUTEROL 0.5-2.5 MG/3 ML AMPUL NEB SCH ×4 (01:35→20:18)
[2017-05-27] MEDS: POLYVINYL ALCOHOL 1.4% OPH SOLN 15 ML OU SCH ×6 (02:41→22:26)
[2017-05-27] MEDS: METRONIDAZOLE 500 MG/NS RTU 100 ML IV SCH ×4 (02:41→20:13)
[2017-05-27 05:17] LABS: ABSOLUTE LYMPHOCYTES (AUTO) 1.2 10^3/uL (0.5-4.7); ABSOLUTE NEUT (AUTO) 9.3 10^3/uL (1.7-8.2); BASOPHILS % (AUTO) 0.2 % (0-2); EOSINOPHILS % (AUTO) 0.2 % (0-6); HEMATOCRIT 25.5 % (37.9-51.0); HEMOGLOBIN 8.4 g/dL (13.5-17.0); LYMPHOCYTES % (AUTO) 10.2 % (13-45); MEAN CORPUSCULAR HEMOGLOBIN 28.6 pg (27.0-33.4); MEAN CORPUSCULAR HGB CONC 32.7 g/dL (32.0-36.0); MEAN CORPUSCULAR VOLUME 87 fl (80-97); MONOCYTES % (AUTO) 8.9 % (3-13); PLATELET COUNT 359 10^3/uL (150-450); RED BLOOD COUNT 2.92 10^6/uL (4.35-5.55); SEGMENTED NEUTROPHILS % (AUTO) 80.5 % (42-78); TOTAL CELLS COUNTED % (AUTO) 100 %; WHITE BLOOD COUNT 11.5 10^3/uL (4.0-10.5)
[2017-05-27 05:35] LABS: ANION GAP 11 (5-19); BLOOD UREA NITROGEN 20 mg/dL (7-20); CALCIUM 9.7 mg/dL (8.4-10.2); CARBON DIOXIDE 27 mmol/L (22-30); CHLORIDE 106 mmol/L (98-107); GLUCOSE 146 mg/dL (75-110); POTASSIUM 3.2 mmol/L (3.6-5.0); SODIUM 143.7 mmol/L (137-145)
[2017-05-27] MEDS: HEPARIN SOD (PORCINE) 5,000 UNIT/ML 1 ML SYRINGE SUBCUT SCH ×3 (05:56→22:26)
[2017-05-27] MEDS: DILTIAZEM HCL 30 MG TABLET PEG SCH ×3 (05:56→17:23)
[2017-05-27] MEDS ORDERED: POTASSI CL 20 MEQ/50 ML RIDER 20 MEQ/50 ML RTUPB IV SCH (09:32)
--- NOTE | 2017-05-27 09:52 | PDOC PROGRESS REPORT ---
Subjective Progress Note for:: 05/27/17 Subjective:: Patient's condition is very much unchanged He is not febrile He appears less dyspneic and is clinically stable Still not verbal not establishing good eye contact Patient's antibiotics were reviewed as cultures are now available Reason For Visit: PNA UTI Physical Exam Vital Signs: Temp Pulse Resp BP Pulse Ox 98.7 F 94 20 114/80 100 05/27/17 03:08 05/27/17 08:50 05/27/17 08:50 05/27/17 03:08 05/27/17 08:50 Intake & Output 05/26/17 05/27/17 05/28/17 00:59 00:59 00:59 Intake Total 2030 1294 1062 Output Total 700 825 200 Balance 1330 469 862 Weight 63.1 kg 63 kg 64.2 kg General appearance: PRESENT: No distress looks ill not establishing an eye contact Thin Head exam: PRESENT: atraumatic, normocephalic Eye exam: PRESENT: conjunctiva pale, EOMI, PERRLA Neck exam: PRESENT: JVD. ABSENT: carotid bruit, lymphadenopathy, thyromegaly Respiratory exam: PRESENT: Decreased breath sounds bilaterally, ABSENT: accessory muscle use Cardiovascular exam: PRESENT: tachycardia. ABSENT: rubs, systolic murmur Pulses: PRESENT: normal dorsalis pedis pul Vascular exam: PRESENT: normal capillary refill GI/Abdominal exam: PRESENT: normal bowel sounds, soft. ABSENT: distended, guarding, mass, organolmegaly, rebound, tenderness Extremities exam: PRESENT: full ROM. ABSENT: calf tenderness, clubbing, pedal edema Neurological exam: PRESENT: awake Skin exam: PRESENT: dry, intact, warm. ABSENT: cyanosis, rash Results Laboratory Results: 05/27/17 04:38 05/27/17 04:38 05/26/17 05/26/17 05/26/17 10:03 10:03 10:03 WBC 13.3 H RBC 2.90 L Hgb 8.3 L Hct 25.5 L MCV 88 MCH 28.7 MCHC 32.7 RDW 14.9 H Plt Count 366 Seg Neutrophils % 84.2 H Lymphocytes % 7.6 L Monocytes % 8.0 Eosinophils % 0.1 Basophils % 0.1 Absolute Neutrophils 11.2 H Absolute Lymphocytes 1.0 Absolute Monocytes 1.1 Absolute Eosinophils 0.0 Absolute Basophils 0.0 VBG pH 7.43 H VBG pCO2 40.8 VBG HCO3 26.5 VBG Base Excess 2.0 Sodium 144.6 Potassium 3.3 L Chloride 106 Carbon Dioxide 28 Anion Gap 11 BUN 23 H Creatinine 0.70 Est GFR ( Amer) > 60 Est GFR (Non-Af Amer) > 60 Glucose 149 H Calcium 9.7 05/27/17 05/27/17 04:38 04:38 WBC 11.5 H RBC 2.92 L Hgb 8.4 L Hct 25.5 L MCV 87 MCH 28.6 MCHC 32.7 RDW 15.0 H Plt Count 359 Seg Neutrophils % 80.5 H Lymphocytes % 10.2 L Monocytes % 8.9 Eosinophils % 0.2 Basophils % 0.2 Absolute Neutrophils 9.3 H Absolute Lymphocytes 1.2 Absolute Monocytes 1.0 Absolute Eosinophils 0.0 Absolute Basophils 0.0 VBG pH VBG pCO2 VBG HCO3 VBG Base Excess Sodium 143.7 Potassium 3.2 L Chloride 106 Carbon Dioxide 27 Anion Gap 11 BUN 20 Creatinine 0.63 Est GFR ( Amer) > 60 Est GFR (Non-Af Amer) > 60 Glucose 146 H Calcium 9.7 05/24/17 13:05 Tracheal Aspirate Gram Stain - Final 05/24/17 13:05 Tracheal Aspirate Sputum Culture - Final Alcaligenes Species Mrsa (Meth Resis Staph Aureus) Pseudomonas Aeruginosa Normal Dalila Absent 05/24/17 13:05 Gram Stain - Final Tracheal Aspirate Sputum Culture - Preliminary Alcaligenes Species Mrsa (Meth Resis Staph Aureus) Pseudomonas Aeruginosa Normal Dalila Absent 05/24/17 11:46 Gram Stain - Preliminary Sacrum - Decubitis Ulcer Wound Culture - Preliminary Mrsa (Meth Resis Staph Aureus) Vre (E.faecalis) 05/23/17 21:42 Urine Culture - Final Catheterized Urine Vre (E.faecalis) 05/23/17 20:30 Blood Culture - Preliminary Blood Gram Positive Cocci Impressions: Chest X-Ray 05/23/17 20:08 IMPRESSION: 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 No acute cardiopulmonary disease is appreciated. Assessment & Plan - Diagnosis (1) Acute and chronic respiratory failure Is this a current diagnosis for this admission?: Yes Plan: 05/25 Likely secondary to pneumonia Initial chest x-ray did not show any infiltrate but copious secretions have been suctioned from tracheostomy Culture of tracheal aspirate was obtained 05/24/17 13:05 Gram Stain - Preliminary Tracheal Aspirate Sputum Culture - Preliminary Gram Negative Rods Gram Positive Cocci Clusters Normal Dalila Absent We will repeat chest x-ray in a.m. Patient does sound somewhat fluid overloaded; we will give him 20 mg of IV Lasix and discontinue IV fluids Patient is getting about 3500 mL of IV fluids per 24 hours with antibiotics 05/27 Patient's breathing seems easier today His lungs are clear without any rhonchi decreased breath sounds bilaterally Tracheal aspirate grew Pseudomonas and MRSA The patient is currently on Linezolid and cefepime We will add tobramycin inhalation for double coverage for Pseudomonas (2) Tracheostomy in place Is this a current diagnosis for this admission?: Yes (3) S/P percutaneous endoscopic gastrostomy (PEG) tube placement Is this a current diagnosis for this admission?: Yes Plan: Continue tube feedings; appreciate dietitians note Patient is tolerating feeding well (4) Aspiration pneumonia Qualifiers: Aspiration pneumonia type: unspecified Laterality: unspecified laterality Lung location: unspecified part of lung Qualified Code(s): J69.0 - Pneumonitis due to inhalation of food and vomit Is this a current diagnosis for this admission?: Yes Plan: Chest x-ray and CAT scan did not show any infiltrate but tracheal aspirate grew Pseudomonas and MRSA We will treat as pneumonia continue cefepime and Linezolid (5) Decubitus ulcer of sacral region, stage 3 Is this a current diagnosis for this admission?: Yes (6) Sepsis Qualifiers: Sepsis type: sepsis due to unspecified organism Qualified Code(s): A41.9 - Sepsis, unspecified organism Is this a current diagnosis for this admission?: Yes (7) UTI (urinary tract infection) Qualifiers: Urinary tract infection type: catheter-associated UTI Indwelling urinary catheter type: indwelling urethral catheter Encounter type: initial encounter Qualified Code(s): T83.511A - Infection and inflammatory reaction due to indwelling urethral catheter, initial encounter; N39.0 - Urinary tract infection , site not specified; N39.0 - Urinary tract infection, site not specified Is this a current diagnosis for this admission?: Yes Plan: 05/24/17 11:46 Gram Stain - Preliminary Sacrum - Decubitis Ulcer Wound Culture - Preliminary Gram Positive Cocci Clusters 05/23/17 21:42 Urine Culture - Preliminary Catheterized Urine Gram Positive Cocci In Chains Gram-positive cocci grew from the urine 05/27 Urine grew VRE Switched the antibiotic to linezolid (8) Protein-calorie malnutrition, severe Is this a current diagnosis for this admission?: Yes Plan: Resume tube feedings Severe protein calorie malnutrition We will continue protein supplements and tube feedings - Time Time Spent with patient: Overall patient's condition is stable Patient has a large decubitus ulcer stage IV in the presacral area He will be stable on Tuesday for surgical intervention Will call Dr. Calles seen on this remember him be okay old beginning of next week he would be okay for intervention EE is remaining stable to schedule it Time Spent with patient: 25-34 minutes
[2017-05-27] MEDS ORDERED: TOBRAMYCIN SULFATE INJ 80 MG/2 ML VIAL NEB SCH (10:15)
[2017-05-27] MEDS: ASCORBIC ACID 500 MG TABLET PEG SCH (10:41)
[2017-05-27] MEDS: FOLIC ACID 1 MG TABLET PEG SCH (10:41)
[2017-05-27] MEDS: CHOLECALCIFEROL (D3) 1,000 UNIT TABLET PEG SCH (10:41)
[2017-05-27] MEDS: DOCUSATE SODIUM 100 MG CAPSULE PO SCH ×2 (10:41→17:04)
[2017-05-27] MEDS: METOPROLOL TARTRATE 25 MG TABLET PEG SCH ×2 (10:42→22:25)
[2017-05-27] MEDS: LINEZOLID 300 ML IV SCH ×2 (10:44→22:26)
[2017-05-27] MEDS: CEFEPIME HCL 2 GM in DEXTROSE 5%-WATER 50 ML IV SCH ×2 (10:44→22:28)
[2017-05-27] MEDS: MULTIVITAMIN ORAL LIQUID 60 ML PO SCH (10:46)
[2017-05-27] MEDS: POLYETHYLENE GLYCOL 3350 POWDER 17 GM/1 PACKET PEG SCH (10:55)
[2017-05-27] MEDS ORDERED: POTASSIUM CHLORIDE 20 MEQ/15 ML UDCUP PO ONE (11:00)
[2017-05-27] MEDS ORDERED: TOBRAMYCIN SULFATE NEB 40 MG/ML 30 ML NEB ONE (11:30)
--- NOTE | 2017-05-27 16:29 | OPERATIVE REPORT E ---
Operative Report NAME: MASSIEL MCCORMACK : 1945 AGE: 71Y DATE OF SURGERY: 05/26/2017 ROOM: 313 PREOPERATIVE DIAGNOSIS: SACRAL DECUBITUS WITH NECROTIC TISSUE MEASURING ABOUT 5 CM X 5 CM X 2 CM DEEP DOWN TO THE SACRAL BONE. POSTOPERATIVE DIAGNOSIS: SACRAL DECUBITUS WITH NECROTIC TISSUE MEASURING ABOUT 5 CM X 5 CM X 2 CM DEEP DOWN TO THE SACRAL BONE. OPERATION: Sharp debridement of necrotic tissue around the sacral decubitus ulcer. SURGEON: CARLOS DEUTSCH M.D. DESCRIPTION OF PROCEDURE: Patient was placed in a left lateral decubitus position, with the nurse holding the patient a bedside. With the use of a #11 blade, the necrotic tissue, primarily a full thickness of the skin which was partially opened, was then debrided close to the periphery. Most of the necrotic tissue was debrided. A small amount of bleeding noted. The abscess cavity was then exposed, which was down into the fascia of the sacrum. Part of the fascia was sharply debrided. The wound was subsequently packed with Iodoform gauze. This would stop the bleeding and at the same time fill up the cavity. Sterile dressing was placed over the operative site. Patient tolerated the procedure well with no local anesthesia. The patient will be started on wet-to-dry dressings starting tomorrow. DICTATING PHYSICIAN: CARLOS DEUTSCH M.D. [id number] PHY#: [id number] ID: [id number] JOB#: [id number] ACCT: [id number] cc:CARLOS DEUTSCH M.D. > [facility]
[2017-05-27] MEDS: TOBRAMYCIN SULFATE NEB 40 MG/ML 30 ML NEB SCH (20:19)
[2017-05-27] MEDS: ATORVASTATIN CALCIUM 40 MG TABLET PEG SCH (22:25)
[2017-05-28] MEDS: DILTIAZEM HCL 30 MG TABLET PEG SCH ×4 (00:23→18:24)
[2017-05-28] MEDS: IPRATROPIUM/ALBUTEROL 0.5-2.5 MG/3 ML AMPUL NEB SCH ×4 (01:35→20:12)
[2017-05-28] MEDS: POLYVINYL ALCOHOL 1.4% OPH SOLN 15 ML OU SCH ×6 (02:43→21:59)
[2017-05-28] MEDS: METRONIDAZOLE 500 MG/NS RTU 100 ML IV SCH ×4 (02:43→20:34)
[2017-05-28] MEDS: HEPARIN SOD (PORCINE) 5,000 UNIT/ML 1 ML SYRINGE SUBCUT SCH ×3 (05:55→21:57)
[2017-05-28] MEDS ORDERED: FUROSEMIDE INJ/PF 20 MG/2 ML SDV IV PRN (08:03)
[2017-05-28] MEDS ORDERED: NORMAL SALINE 250 ML IV PRN ×2 (08:03)
[2017-05-28 08:32] LABS: ABSOLUTE EOSINOPHILS # (AUTO) 0.1 10^3/uL (0.0-0.6); ABSOLUTE LYMPHOCYTES (AUTO) 1.5 10^3/uL (0.5-4.7); ABSOLUTE MONOCYTES (AUTO) 1.4 10^3/uL (0.1-1.4); BASOPHILS % (AUTO) 0.1 % (0-2); EOSINOPHILS % (AUTO) 0.6 % (0-6); HEMATOCRIT 25.3 % (37.9-51.0); HEMOGLOBIN 8.2 g/dL (13.5-17.0); LYMPHOCYTES % (AUTO) 10.2 % (13-45); MEAN CORPUSCULAR HEMOGLOBIN 28.5 pg (27.0-33.4); MEAN CORPUSCULAR HGB CONC 32.5 g/dL (32.0-36.0); MEAN CORPUSCULAR VOLUME 88 fl (80-97); MONOCYTES % (AUTO) 9.1 % (3-13); PLATELET COUNT 395 10^3/uL (150-450); RED BLOOD COUNT 2.88 10^6/uL (4.35-5.55); RED CELL DISTRIBUTION WIDTH 15.2 % (11.5-14.0); TOTAL CELLS COUNTED % (AUTO) 100 %
[2017-05-28] MEDS: TOBRAMYCIN SULFATE NEB 40 MG/ML 30 ML NEB SCH ×2 (08:53→20:15)
[2017-05-28 08:56] LABS: ALANINE AMINOTRANSFERASE 31 U/L (21-72); ALBUMIN 2.4 g/dL (3.5-5.0); ALKALINE PHOSPHATASE 67 U/L (38-126); ANION GAP 11 (5-19); ASPARTATE AMINO TRANSFERASE 24 U/L (17-59); BILIRUBIN,DIRECT 0.3 mg/dL (0.0-0.4); BILIRUBIN,TOTAL 0.3 mg/dL (0.2-1.3); BLOOD UREA NITROGEN 16 mg/dL (7-20); CALCIUM 9.6 mg/dL (8.4-10.2); CARBON DIOXIDE 27 mmol/L (22-30); CHLORIDE 106 mmol/L (98-107); GLUCOSE 154 mg/dL (75-110); POTASSIUM 3.4 mmol/L (3.6-5.0); SODIUM 143.8 mmol/L (137-145); TOTAL PROTEIN 6.3 g/dL (6.3-8.2)
[2017-05-28 10:02] LABS: FOLATE > 20.00 ng/mL (>2.76); IRON(TIBC) < 10.1 ug/dL (49-181)
[2017-05-28] MEDS: METOPROLOL TARTRATE 25 MG TABLET PEG SCH ×2 (10:51→21:57)
[2017-05-28] MEDS: MULTIVITAMIN ORAL LIQUID 60 ML PO SCH (10:51)
[2017-05-28] MEDS: POLYETHYLENE GLYCOL 3350 POWDER 17 GM/1 PACKET PEG SCH (10:52)
[2017-05-28] MEDS: CHOLECALCIFEROL (D3) 1,000 UNIT TABLET PEG SCH (10:52)
[2017-05-28] MEDS: ASCORBIC ACID 500 MG TABLET PEG SCH (10:52)
[2017-05-28] MEDS: FOLIC ACID 1 MG TABLET PEG SCH (10:52)
[2017-05-28] MEDS: LINEZOLID 300 ML IV SCH ×2 (10:52→21:57)
[2017-05-28] MEDS: DOCUSATE SODIUM 100 MG CAPSULE PO SCH ×2 (10:52→18:24)
--- NOTE | 2017-05-28 11:21 | PDOC PROGRESS REPORT ---
Subjective Progress Note for:: 05/28/17 Subjective:: MASSIEL CALLES JR is a 71 year old male with a past medical history of hypertension CVA with residual left-sided neglect, expressive aphasia, status post PEG and tracheostomy who is a long-term [facility] resident presented with fever and copious tracheostomy secretions. Patient was diagnosed of sepsis Broad-spectrum antibiotics were initiated on admission Patient has remained hemodynamically stable Multiple sources for sepsis were identified: Pneumonia VRE UTI Staph bacteremia Grade 4 sacral decubitus ulcer 05/24/17 13:05 Gram Stain - Final Tracheal Aspirate Sputum Culture - Final Alcaligenes Species Mrsa (Meth Resis Staph Aureus) Pseudomonas Aeruginosa Normal Dalila Absent 05/24/17 11:46 Gram Stain - Final Sacrum - Decubitis Ulcer Wound Culture - Final Mrsa (Meth Resis Staph Aureus) Vre (E.faecalis) 05/23/17 21:42 Urine Culture - Final Catheterized Urine Vre (E.faecalis) 05/23/17 20:30 Blood Culture - Preliminary Blood Staphylococcus Capitis Patient is currently on Linezolid, Flagyl, Cefepime and Tobramycin nebs His mentation is unchanged Patient is usually nonverbal not establishing eye contact He remains in very mild respiratory distress with copious tracheal secretions Feedings have been resumed and he is tolerating them well Patient remains a full code Reason For Visit: PNA UTI Physical Exam Vital Signs: Temp Pulse Resp BP Pulse Ox 99.0 F 94 20 130/83 H 97 05/28/17 07:33 05/28/17 08:53 05/28/17 08:53 05/28/17 07:33 05/28/17 08:53 Intake & Output 05/27/17 05/28/17 05/29/17 00:59 00:59 00:59 Intake Total 1294 2016 917 Output Total 82 750 250 Balance 469 1266 667 Weight 63 kg 64.2 kg 66.2 kg General appearance: PRESENT: No distress looks ill not establishing an eye contact Thin Head exam: PRESENT: atraumatic, normocephalic Eye exam: PRESENT: conjunctiva pale, EOMI, PERRLA Neck exam: PRESENT: JVD. ABSENT: carotid bruit, lymphadenopathy, thyromegaly Respiratory exam: PRESENT: Decreased breath sounds bilaterally, ABSENT: accessory muscle use Cardiovascular exam: PRESENT: tachycardia. ABSENT: rubs, systolic murmur Pulses: PRESENT: normal dorsalis pedis pul Vascular exam: PRESENT: normal capillary refill GI/Abdominal exam: PRESENT: normal bowel sounds, soft. ABSENT: distended, guarding, mass, organolmegaly, rebound, tenderness Extremities exam: PRESENT: full ROM. ABSENT: calf tenderness, clubbing, pedal edema Neurological exam: PRESENT: awake Skin exam: PRESENT: dry, intact, warm. ABSENT: cyanosis, rash Results Laboratory Results: 05/28/17 08:15 05/28/17 08:15 05/27/17 05/28/17 05/28/17 04:38 08:15 08:15 WBC 15.0 H RBC 2.88 L Hgb 8.2 L Hct 25.3 L MCV 88 MCH 28.5 MCHC 32.5 RDW 15.2 H Plt Count 395 Seg Neutrophils % 80.0 H Lymphocytes % 10.2 L Monocytes % 9.1 Eosinophils % 0.6 Basophils % 0.1 Absolute Neutrophils 12.0 H Absolute Lymphocytes 1.5 Absolute Monocytes 1.4 Absolute Eosinophils 0.1 Absolute Basophils 0.0 Sodium 143.8 Potassium 3.4 L Chloride 106 Carbon Dioxide 27 Anion Gap 11 BUN 16 Creatinine 0.65 Est GFR ( Amer) > 60 Est GFR (Non-Af Amer) > 60 Glucose 154 H Calcium 9.6 Phosphorus 3.0 Magnesium 1.8 1.8 Iron < 10.1 L TIBC 185 L % Saturation UNABLE TO CALCULATE Ferritin 565.00 H Total Bilirubin 0.3 AST 24 ALT 31 Alkaline Phosphatase 67 Total Protein 6.3 Albumin 2.4 L Vitamin B12 > 1000.0 H Folate > 20.00 Blood Type Antibody Screen 05/28/17 08:15 WBC RBC Hgb Hct MCV MCH MCHC RDW Plt Count Seg Neutrophils % Lymphocytes % Monocytes % Eosinophils % Basophils % Absolute Neutrophils Absolute Lymphocytes Absolute Monocytes Absolute Eosinophils Absolute Basophils Sodium Potassium Chloride Carbon Dioxide Anion Gap BUN Creatinine Est GFR ( Amer) Est GFR (Non-Af Amer) Glucose Calcium Phosphorus Magnesium Iron TIBC % Saturation Ferritin Total Bilirubin AST ALT Alkaline Phosphatase Total Protein Albumin Vitamin B12 Folate Blood Type AB POSITIVE Antibody Screen NEGATIVE 05/24/17 11:46 Sacrum - Decubitis Ulcer Gram Stain - Final 05/24/17 11:46 Sacrum - Decubitis Ulcer Wound Culture - Final Mrsa (Meth Resis Staph Aureus) Vre (E.faecalis) 05/24/17 13:05 Tracheal Aspirate Gram Stain - Final 05/24/17 13:05 Tracheal Aspirate Sputum Culture - Final Alcaligenes Species Mrsa (Meth Resis Staph Aureus) Pseudomonas Aeruginosa Normal Dalila Absent Impressions: Chest X-Ray 05/23/17 20:08 IMPRESSION: 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 No acute cardiopulmonary disease is appreciated. Assessment & Plan - Diagnosis (1) Acute and chronic respiratory failure Is this a current diagnosis for this admission?: Yes Plan: Secondary to sepsis , pneumonia and severe COPD Chest x-ray showed bullous emphysema without specific infiltrates Patient does have clinical pneumonia with copious secretions and multiple bacteria were cultured from the sputum including Pseudomonas Respiratory failure has improved Patient is still on the trach collar and oxygen supplementation His respirations at times are somewhat labored with audible rhonchi Continue antibiotics Continue tracheal suction Continue O2 supplementation (2) Tracheostomy in place Is this a current diagnosis for this admission?: Yes (3) S/P percutaneous endoscopic gastrostomy (PEG) tube placement Is this a current diagnosis for this admission?: Yes Plan: Tube feedings have been reinitiated (4) Aspiration pneumonia Qualifiers: Aspiration pneumonia type: unspecified Laterality: unspecified laterality Lung location: unspecified part of lung Qualified Code(s): J69.0 - Pneumonitis due to inhalation of food and vomit Is this a current diagnosis for this admission?: Yes (5) Sepsis Qualifiers: Sepsis type: sepsis due to unspecified organism Qualified Code(s): A41.9 - Sepsis, unspecified organism Is this a current diagnosis for this admission?: Yes Plan: Is resolving at this time (6) UTI (urinary tract infection) Qualifiers: Urinary tract infection type: catheter-associated UTI Indwelling urinary catheter type: indwelling urethral catheter Encounter type: initial encounter Qualified Code(s): T83.511A - Infection and inflammatory reaction due to indwelling urethral catheter, initial encounter; N39.0 - Urinary tract infection , site not specified; N39.0 - Urinary tract infection, site not specified Is this a current diagnosis for this admission?: Yes Plan: Secondary to VRE Continue linezolid (7) Protein-calorie malnutrition, severe Is this a current diagnosis for this admission?: Yes (8) Stage IV decubitus ulcer Is this a current diagnosis for this admission?: Yes Plan: Patient will need debridement in the OR and wound VAC Dr Calles was consulted Patient will be scheduled on Tuesday for debridement Noted that VRE grew from the wound as well - Time Time Spent with patient: Patient may very well have endocarditis with this presentation It is noted that he does have staph bacteremia as well ; we will order an echocardiogram We will repeat blood cultures PICC line will be inserted on Tuesday if repeat blood cultures are negative Time Spent with patient: 25-34 minutes
[2017-05-28] MEDS: CEFEPIME HCL 2 GM in DEXTROSE 5%-WATER 50 ML IV SCH ×2 (13:09→22:00)
[2017-05-28] MEDS: ATORVASTATIN CALCIUM 40 MG TABLET PEG SCH (21:57)
[2017-05-28 22:50] LABS: HEMATOCRIT 31.2 % (37.9-51.0); HEMOGLOBIN 10.2 g/dL (13.5-17.0); MEAN CORPUSCULAR HEMOGLOBIN 29.2 pg (27.0-33.4); MEAN CORPUSCULAR HGB CONC 32.8 g/dL (32.0-36.0); MEAN CORPUSCULAR VOLUME 89 fl (80-97); PLATELET COUNT 365 10^3/uL (150-450); RED BLOOD COUNT 3.51 10^6/uL (4.35-5.55); RED CELL DISTRIBUTION WIDTH 15.6 % (11.5-14.0)
[2017-05-29] MEDS: DILTIAZEM HCL 30 MG TABLET PEG SCH ×5 (00:45→23:55)
[2017-05-29] MEDS: POLYVINYL ALCOHOL 1.4% OPH SOLN 15 ML OU SCH ×6 (01:52→22:13)
[2017-05-29] MEDS: IPRATROPIUM/ALBUTEROL 0.5-2.5 MG/3 ML AMPUL NEB SCH ×4 (01:56→20:53)
[2017-05-29 02:24] LABS: ARTERIAL BLOOD BASE EXCESS 0.4 mmol/L; ARTERIAL BLOOD FIO2 50%; ARTERIAL BLOOD H2CO3 1.18 mmol/L (1.05-1.35); ARTERIAL BLOOD HCO3 24.9 mmol/L (20-26); ARTERIAL BLOOD O2 SATURATION 96.9 % (94-98); ARTERIAL BLOOD PCO2 39.3 mmHg (35-45); ARTERIAL BLOOD PH 7.42 (7.35-7.45); ARTERIAL BLOOD PO2 88.2 mmHg (80-100); ARTERIAL BLOOD TOTAL CO2 26.1 mmol/L (23-27)
[2017-05-29] MEDS: METRONIDAZOLE 500 MG/NS RTU 100 ML IV SCH ×4 (02:37→20:19)
[2017-05-29] MEDS: HEPARIN SOD (PORCINE) 5,000 UNIT/ML 1 ML SYRINGE SUBCUT SCH ×3 (05:45→22:12)
[2017-05-29] MEDS: TOBRAMYCIN SULFATE NEB 40 MG/ML 30 ML NEB SCH ×2 (08:00→20:53)
[2017-05-29] MEDS: ASCORBIC ACID 500 MG TABLET PEG SCH ×3 (09:59→17:46)
[2017-05-29] MEDS: METOPROLOL TARTRATE 25 MG TABLET PEG SCH ×2 (09:59→22:12)
[2017-05-29] MEDS: LINEZOLID 300 ML IV SCH ×2 (09:59→22:12)
[2017-05-29] MEDS: CHOLECALCIFEROL (D3) 1,000 UNIT TABLET PEG SCH (09:59)
[2017-05-29] MEDS: POLYETHYLENE GLYCOL 3350 POWDER 17 GM/1 PACKET PEG SCH (09:59)
[2017-05-29] MEDS: MULTIVITAMIN ORAL LIQUID 60 ML PO SCH (09:59)
[2017-05-29] MEDS: FOLIC ACID 1 MG TABLET PEG SCH (09:59)
[2017-05-29] MEDS: DOCUSATE SODIUM 100 MG CAPSULE PO SCH ×2 (09:59→17:47)
[2017-05-29] MEDS: GUAIFENESIN SYRP 200 MG/10 ML UDC PO SCH ×3 (11:30→23:55)
[2017-05-29] MEDS: CEFEPIME HCL 2 GM in DEXTROSE 5%-WATER 50 ML IV SCH ×2 (11:31→22:12)
--- NOTE | 2017-05-29 12:00 | PROGRESS NOTE E ---
Progress Note NAME: MASSIEL MCCORMACK : 1945 AGE: 71Y DATE: 05/29/2017 ROOM: 313 SUBJECTIVE: The patient is lying in bed. The patient is not responsive even not to stimuli. The patient does not track with his eyes. Does not have a blink or startle response. The patient appears to have been afebrile. His blood pressures have been in good range. The patient continues to oxygenate the Trach collar and is unable to voice any concerns at this time. REVIEW OF SYSTEMS: Unobtainable given the patient's mental status. MEDICATIONS: Reviewed. OBJECTIVE: GENERAL: The patient is a frail, vegetative appearing 71-year-old -[place]aced[place] male who is nonresponsive and slightly tachypneic. VITAL SIGNS: As follows: Temperature 89.9, pulse 101, respirations 24, blood pressure 130/79, oxygen saturation is 97% on 50% FiO2 via Trach collar. SKIN: Warm and dry. No rash, not diaphoretic. HEENT: Pupils are sluggish. Trach collar in place. CARDIOVASCULAR: Heart is regular. There is no rub. CHEST: The patient does have significant airway rhonchorous breath sounds in upper lung pinon. Symmetrical, labored and not even respirations. ABDOMEN: PEG tube is in situ. EXTREMITIES: There is no edema. PSYCHIATRIC: The patient is not responsive. DIAGNOSTICS: Lab values are as follows: Hematology obtained on 05/28/2017, WBC was 12.0, hemoglobin 10.2, hematocrit 31.2, platelet count is 365,000. Chemistries obtained on 05/28/2017, sodium is 143, potassium 3.4, chloride 106, carbon dioxide 27, BUN 16, creatinine is 0.65, glucose 154, calcium is 9.6, phosphorous 3.0, magnesium 1.8, iron is less than 10. TIBC is 185. Ferritin is 565. Bilirubin 0.3, AST 24, ALT 31, alk phos 67, total protein 6.7, albumin 2.4. B12 is greater than 1000. Folate greater than 20. IMPRESSION AND PLAN: 1. MULTIFOCAL PNEUMONIA TO INCLUDE HEALTHCARE ASSOCIATED PNEUMONIA WELL ASPIRATION. The patient is on broad spectrum antibiotic coverage. He does have polymicrobial findings in his sputum. Will add scheduled guaifenesin to help with secretions and continue nebulizers. Will also add Mucomyst nebs. 2. ACUTE ON CHRONIC HYPOXEMIC RESPIRATORY FAILURE. The patient already has a tracheostomy but does require increasing supplemental O2. Most likely this is a combination of the patient's pneumonia. The patient does not have any stridor sounds or so forth. He appears to have no difficulties with the oxygenation. 3. SEPSIS SECONDARY TO PNEUMONIA. Appears to be resolving. 4. STAGE 4 SACRAL DECUBITUS ULCER. The patient is going to OR for debridement and wound VAC. Dr. Mccormack has been consulted regarding this. 5. CATHETER ASSOCIATED URINARY TRACT INFECTION. Given that this is polymicrobial as well, feel this is most likely a contaminant; however, the patient is growing everything else in his lungs so we will continue to cover this. 6. SEVERE PROTEIN CALORIE MALNOURISHMENT. Will continue his supplemental tube feeds. 7. STAPH BACTEREMIA. This does appear to be growing only in one blood culture bottle. Repeat cultures are pending. Once again, the patient continues on linezolid. He is to have an echo Tuesday. 8. CEREBRAL VASCULAR DISEASE. The patient is post CVA which has left him in this persistent vegetative state. Have consulted Daphne Willis with Palliative Care to help navigate this. Will attempt to contact the family today to discuss code status and so forth. DISPOSITION: The patient is a FULL CODE. Pending patient's symptomatology and diagnostic findings, will reevaluate in the a.m. The patient appears to have an overall very poor prognosis. Time spent on this followup including assessment, plan, physical examination, attempt at patient education, review of records is 35 minutes. DICTATING PHYSICIAN: RONAL YOUNG NP [id number] PHY#: [id number] ID: [id number] JOB#: [id number] ACCT: [id number] cc: > [facility]TDD
[2017-05-29] MEDS: FERROUS SULFATE LIQUID 300 MG/5 ML UDC PEG SCH ×2 (14:27→17:46)
[2017-05-29] MEDS: ACETYLCYSTEINE 20% SOLN 800 MG/4 ML VIAL.NEB NEB SCH (20:54)
[2017-05-29] MEDS: ATORVASTATIN CALCIUM 40 MG TABLET PEG SCH (22:12)
[2017-05-30] MEDS: METRONIDAZOLE 500 MG/NS RTU 100 ML IV SCH ×4 (02:05→21:00)
[2017-05-30] MEDS: POLYVINYL ALCOHOL 1.4% OPH SOLN 15 ML OU SCH ×6 (02:05→22:07)
[2017-05-30] MEDS: IPRATROPIUM/ALBUTEROL 0.5-2.5 MG/3 ML AMPUL NEB SCH ×4 (02:50→20:54)
[2017-05-30] MEDS: HEPARIN SOD (PORCINE) 5,000 UNIT/ML 1 ML SYRINGE SUBCUT SCH ×3 (05:57→22:06)
[2017-05-30] MEDS: DILTIAZEM HCL 30 MG TABLET PEG SCH ×3 (06:02→18:16)
[2017-05-30 07:16] LABS: HEMATOCRIT 29.2 % (37.9-51.0); HEMOGLOBIN 9.7 g/dL (13.5-17.0); MEAN CORPUSCULAR HEMOGLOBIN 29.1 pg (27.0-33.4); MEAN CORPUSCULAR HGB CONC 33.3 g/dL (32.0-36.0); MEAN CORPUSCULAR VOLUME 87 fl (80-97); PLATELET COUNT 387 10^3/uL (150-450); RED BLOOD COUNT 3.34 10^6/uL (4.35-5.55); RED CELL DISTRIBUTION WIDTH 15.6 % (11.5-14.0); WHITE BLOOD COUNT 17.5 10^3/uL (4.0-10.5)
[2017-05-30 07:54] LABS: ANION GAP 9 (5-19); BLOOD UREA NITROGEN 18 mg/dL (7-20); CALCIUM 9.5 mg/dL (8.4-10.2); CARBON DIOXIDE 29 mmol/L (22-30); CHLORIDE 105 mmol/L (98-107); GLUCOSE 125 mg/dL (75-110); POTASSIUM 3.3 mmol/L (3.6-5.0); SODIUM 142.9 mmol/L (137-145)
[2017-05-30] MEDS: TOBRAMYCIN SULFATE NEB 40 MG/ML 30 ML NEB SCH ×2 (08:26→20:53)
[2017-05-30] MEDS: ACETYLCYSTEINE 20% SOLN 800 MG/4 ML VIAL.NEB NEB SCH ×2 (08:27→20:53)
[2017-05-30] MEDS ORDERED: ACETYLCYSTEINE 20% SOLN 800 MG/4 ML VIAL.NEB NEB ONE (08:30)
[2017-05-30] MEDS: GUAIFENESIN SYRP 200 MG/10 ML UDC PO SCH ×3 (08:56→18:16)
[2017-05-30] MEDS: POLYETHYLENE GLYCOL 3350 POWDER 17 GM/1 PACKET PEG SCH (10:19)
[2017-05-30] MEDS: ASCORBIC ACID 500 MG TABLET PEG SCH ×3 (10:26→18:16)
[2017-05-30] MEDS: FERROUS SULFATE LIQUID 300 MG/5 ML UDC PEG SCH ×3 (10:26→18:16)
[2017-05-30] MEDS: DOCUSATE SODIUM 100 MG CAPSULE PO SCH ×2 (10:26→18:16)
[2017-05-30] MEDS: FOLIC ACID 1 MG TABLET PEG SCH (10:27)
[2017-05-30] MEDS: METOPROLOL TARTRATE 25 MG TABLET PEG SCH ×2 (10:27→22:05)
[2017-05-30] MEDS: CHOLECALCIFEROL (D3) 1,000 UNIT TABLET PEG SCH (10:27)
[2017-05-30] MEDS: MULTIVITAMIN ORAL LIQUID 60 ML PO SCH (10:32)
[2017-05-30] MEDS: CEFEPIME HCL 2 GM in DEXTROSE 5%-WATER 50 ML IV SCH ×2 (10:33→22:08)
[2017-05-30] MEDS: LINEZOLID 300 ML IV SCH ×2 (10:34→22:06)
--- NOTE | 2017-05-30 15:24 | PDOC PROGRESS REPORT ---
Subjective Progress Note for:: 05/30/17 Subjective:: MASSIEL MCCORMACK JR is a 71 year old male with a past medical history of hypertension CVA with residual left-sided neglect, expressive aphasia, status post PEG and tracheostomy who is a long-term [facility]-way resident presented with fever and copious tracheostomy secretions. Patient was diagnosed of sepsis Broad-spectrum antibiotics were initiated on admission Patient has remained hemodynamically stable Multiple sources for sepsis were identified: Pneumonia VRE UTI Staph bacteremia Grade 4 sacral decubitus ulcer 05/24/17 13:05 Gram Stain - Final Tracheal Aspirate Sputum Culture - Final Alcaligenes Species Mrsa (Meth Resis Staph Aureus) Pseudomonas Aeruginosa Normal Dalila Absent 05/24/17 11:46 Gram Stain - Final Sacrum - Decubitis Ulcer Wound Culture - Final Mrsa (Meth Resis Staph Aureus) Vre (E.faecalis) 05/23/17 21:42 Urine Culture - Final Catheterized Urine Vre (E.faecalis) 05/23/17 20:30 Blood Culture - Preliminary Blood Staphylococcus Capitis Patient is currently on Linezolid, Flagyl, Cefepime and Tobramycin nebs His mentation is unchanged Patient is usually nonverbal not establishing eye contact He remains in very mild respiratory distress with copious tracheal secretions Feedings have been resumed and he is tolerating them well Patient remains a full code 05/30 Patient's condition is unchanged He is still not verbal not establishing eye contact appears extremely ill Patient is scheduled for debridement of the decubitus ulcer in the OR today His tube feedings on hold Reason For Visit: PNA UTI Physical Exam Vital Signs: Temp Pulse Resp BP Pulse Ox 98.2 F 83 18 123/79 96 05/30/17 07:09 05/30/17 13:32 05/30/17 13:32 05/30/17 07:09 05/30/17 08:26 Intake & Output 05/29/17 05/30/17 05/31/17 00:59 00:59 00:59 Intake Total 2683 2239 570 Output Total 1350 1000 500 Balance 1333 1239 70 Weight 66.2 kg 66.8 kg 66.7 kg General appearance: PRESENT: No distress looks ill not establishing an eye contact Thin Head exam: PRESENT: atraumatic, normocephalic Eye exam: PRESENT: conjunctiva pale, EOMI, PERRLA Neck exam: PRESENT: JVD. ABSENT: carotid bruit, lymphadenopathy, thyromegaly Respiratory exam: PRESENT: Decreased breath sounds bilaterally, ABSENT: accessory muscle use Cardiovascular exam: PRESENT: tachycardia. ABSENT: rubs, systolic murmur Pulses: PRESENT: normal dorsalis pedis pul Vascular exam: PRESENT: normal capillary refill GI/Abdominal exam: PRESENT: normal bowel sounds, soft. ABSENT: distended, guarding, mass, organolmegaly, rebound, tenderness Extremities exam: PRESENT: full ROM. ABSENT: calf tenderness, clubbing, pedal edema Neurological exam: PRESENT: awake Skin exam: PRESENT: dry, intact, warm. 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 No acute cardiopulmonary disease is appreciated. Assessment & Plan - Diagnosis (1) Acute and chronic respiratory failure Is this a current diagnosis for this admission?: Yes (2) Tracheostomy in place Is this a current diagnosis for this admission?: Yes (3) S/P percutaneous endoscopic gastrostomy (PEG) tube placement Is this a current diagnosis for this admission?: Yes (4) Aspiration pneumonia Qualifiers: Aspiration pneumonia type: unspecified Laterality: unspecified laterality Lung location: unspecified part of lung Qualified Code(s): J69.0 - Pneumonitis due to inhalation of food and vomit Is this a current diagnosis for this admission?: Yes (5) Sepsis Qualifiers: Sepsis type: sepsis due to unspecified organism Qualified Code(s): A41.9 - Sepsis, unspecified organism Is this a current diagnosis for this admission?: Yes (6) UTI (urinary tract infection) Qualifiers: Urinary tract infection type: catheter-associated UTI Indwelling urinary catheter type: indwelling urethral catheter Encounter type: initial encounter Qualified Code(s): T83.511A - Infection and inflammatory reaction due to indwelling urethral catheter, initial encounter; N39.0 - Urinary tract infection , site not specified; N39.0 - Urinary tract infection, site not specified Is this a current diagnosis for this admission?: Yes (7) Protein-calorie malnutrition, severe Is this a current diagnosis for this admission?: Yes (8) Stage IV decubitus ulcer Is this a current diagnosis for this admission?: Yes - Time Time Spent with patient: Continue present management It is noted that patient has persistent leukocytosis 05/28/17 05/28/17 05/30/17 08:15 22:38 07:05 WBC 15.0 H 18.0 H 17.5 H his blood cultures are now negative Echocardiogram is still pending Debridement of stage IV sacral decubitus ulcer will be performed today or tomorrow depending on or time PICC line placement in the next 24-48 hrs. We will order CRP repeat BMP and CBC in a.m. Patient remains a full code Time Spent with patient: 25-34 minutes - Inpatient Certification Based on my medical assessment, after consideration of the patient's comorbidities, presenting symptoms, or acuity I expect that the services needed warrant INPATIENT care.: Yes I certify that my determination is in accordance with my understanding of Medicare's requirements for reasonable and necessary INPATIENT services [42 CFR 412.3e].: Yes Medical Necessity: Need For IV Fluids, Need for IV Antibiotics
[2017-05-30] MEDS ORDERED: COLLAGENASE CLOSTRIDIUM HIST. OINT 30 GM ONE (16:39)
[2017-05-30] MEDS ORDERED: SILVER SULFADIAZINE 1% CREAM 25 GM ONE (16:39)
[2017-05-30] MEDS ORDERED: EPHEDRINE SULFATE INJ 50 MG/1 ML AMPULE ONE (16:40)
[2017-05-30] MEDS ORDERED: BUPIVACAINE HCL 0.25 % INJ/PF (2.5 MG/1 ML) 30 ML VIAL ONE (16:40)
[2017-05-30] MEDS ORDERED: LIDOCAINE 0.5% INJ-PF (5 MG/ML) 50 ML SDV ONE (16:40)
[2017-05-30] MEDS ORDERED: BACITRACIN INJ 50,000 UNIT VIAL ONE ×2 (16:40→16:46)
[2017-05-30] MEDS ORDERED: PROPOFOL INJ 200 MG/20 ML VIAL IV ONE (16:40)
[2017-05-30] MEDS ORDERED: MIDAZOLAM 2 MG/2 ML INJ ONE (16:45)
[2017-05-30] MEDS ORDERED: ONDANSETRON HCL INJ/PF 4 MG/2 ML SDV IV PRN (17:45)
[2017-05-30] MEDS ORDERED: FENTANYL CITRATE INJ/PF 100 MCG/2 ML AMPUL IV PRN (17:45)
[2017-05-30] MEDS ORDERED: COLLAGENASE CLOSTRIDIUM HIST. OINT 30 GM TP PRN (20:00)
[2017-05-30] MEDS: ATORVASTATIN CALCIUM 40 MG TABLET PEG SCH (22:05)
--- NOTE | 2017-05-30 22:36 | Progress Note ---
Provider Note Provider Note: Palliative Care visit note. 05/30/17 1:15Pm Attempted PC visit with this patient today per request Fabrizio Lemus NP. Patient is nonresponsive. No family at bedside. No phone number available for patients family. Per [place] landscape architect and planner notes, daughter is in [place] but did not leave number where she can be reached for support or discussion advance directives. Appreciated notes other providers and nursing. Per nursing, patient is to have surgical debridement of sacral wounds. He continues to be very ill. will attempt to reach family if number documented . Nonbillable visit.
[2017-05-31] MEDS: GUAIFENESIN SYRP 200 MG/10 ML UDC PO SCH ×5 (00:21→23:59)
[2017-05-31] MEDS: DILTIAZEM HCL 30 MG TABLET PEG SCH ×4 (00:21→17:29)
[2017-05-31] MEDS: IPRATROPIUM/ALBUTEROL 0.5-2.5 MG/3 ML AMPUL NEB SCH ×4 (02:03→19:42)
[2017-05-31] MEDS: METRONIDAZOLE 500 MG/NS RTU 100 ML IV SCH (02:33)
[2017-05-31] MEDS: POLYVINYL ALCOHOL 1.4% OPH SOLN 15 ML OU SCH ×6 (02:34→22:04)
[2017-05-31 05:10] LABS: ABSOLUTE EOSINOPHILS # (AUTO) 0.1 10^3/uL (0.0-0.6); ABSOLUTE LYMPHOCYTES (AUTO) 1.3 10^3/uL (0.5-4.7); ABSOLUTE MONOCYTES (AUTO) 1.3 10^3/uL (0.1-1.4); ABSOLUTE NEUT (AUTO) 11.2 10^3/uL (1.7-8.2); BASOPHILS % (AUTO) 0.1 % (0-2); EOSINOPHILS % (AUTO) 0.8 % (0-6); HEMATOCRIT 29.9 % (37.9-51.0); HEMOGLOBIN 9.9 g/dL (13.5-17.0); LYMPHOCYTES % (AUTO) 9.5 % (13-45); MEAN CORPUSCULAR HEMOGLOBIN 28.8 pg (27.0-33.4); MEAN CORPUSCULAR HGB CONC 33.2 g/dL (32.0-36.0); MEAN CORPUSCULAR VOLUME 87 fl (80-97); MONOCYTES % (AUTO) 9.2 % (3-13); PLATELET COUNT 379 10^3/uL (150-450); RED BLOOD COUNT 3.44 10^6/uL (4.35-5.55); RED CELL DISTRIBUTION WIDTH 15.8 % (11.5-14.0); SEGMENTED NEUTROPHILS % (AUTO) 80.4 % (42-78); TOTAL CELLS COUNTED % (AUTO) 100 %
[2017-05-31 05:37] LABS: ALANINE AMINOTRANSFERASE 27 U/L (21-72); ALBUMIN 2.2 g/dL (3.5-5.0); ALKALINE PHOSPHATASE 70 U/L (38-126); ANION GAP 8 (5-19); ASPARTATE AMINO TRANSFERASE 28 U/L (17-59); BILIRUBIN,DIRECT 0.4 mg/dL (0.0-0.4); BILIRUBIN,TOTAL 0.4 mg/dL (0.2-1.3); BLOOD UREA NITROGEN 18 mg/dL (7-20); C-REACTIVE PROTEIN 88.6 mg/L (<10.0); CALCIUM 9.4 mg/dL (8.4-10.2); CARBON DIOXIDE 30 mmol/L (22-30); CHLORIDE 104 mmol/L (98-107); GLUCOSE 159 mg/dL (75-110); POTASSIUM 3.4 mmol/L (3.6-5.0); SODIUM 142.1 mmol/L (137-145); TOTAL PROTEIN 6.3 g/dL (6.3-8.2)
[2017-05-31] MEDS: INSULIN REG, HUMAN 100 UNIT/ML 3 ML VIAL (PYX) SUBCUT PRN (06:07)
[2017-05-31] MEDS: HEPARIN SOD (PORCINE) 5,000 UNIT/ML 1 ML SYRINGE SUBCUT SCH ×3 (06:07→22:04)
[2017-05-31] MEDS: ACETYLCYSTEINE 20% SOLN 800 MG/4 ML VIAL.NEB NEB SCH ×2 (09:12→19:42)
[2017-05-31] MEDS: TOBRAMYCIN SULFATE NEB 40 MG/ML 30 ML NEB SCH ×2 (09:12→19:42)
[2017-05-31] MEDS: FERROUS SULFATE LIQUID 300 MG/5 ML UDC PEG SCH ×3 (10:38→17:29)
[2017-05-31] MEDS: CHOLECALCIFEROL (D3) 1,000 UNIT TABLET PEG SCH (10:39)
[2017-05-31] MEDS: FOLIC ACID 1 MG TABLET PEG SCH (10:39)
[2017-05-31] MEDS: POLYETHYLENE GLYCOL 3350 POWDER 17 GM/1 PACKET PEG SCH (10:39)
[2017-05-31] MEDS: MULTIVITAMIN ORAL LIQUID 60 ML PO SCH (10:39)
[2017-05-31] MEDS: ASCORBIC ACID 500 MG TABLET PEG SCH ×3 (10:40→17:29)
[2017-05-31] MEDS: METOPROLOL TARTRATE 25 MG TABLET PEG SCH ×2 (10:40→22:02)
[2017-05-31] MEDS: LINEZOLID 300 ML IV SCH ×2 (10:41→21:59)
--- NOTE | 2017-05-31 10:50 | PDOC PROGRESS REPORT ---
Subjective Progress Note for:: 05/31/17 Subjective:: 71-year-old gentleman with history of CVA and hypertension and residual left- sided neglect, expressive aphasia status post PEG and tracheostomy who was admitted with sepsis, pneumonia, healthcare associated possibly aspiration, he is currently on broad-spectrum antibiotics. Reason For Visit: PNA UTI Physical Exam Vital Signs: Temp Pulse Resp BP Pulse Ox 100.0 F 107 H 23 H 130/79 H 90 L 05/31/17 08:00 05/31/17 08:00 05/31/17 08:00 05/31/17 08:00 05/31/17 08:00 Intake & Output 05/30/17 05/31/17 06/01/17 06:59 06:59 06:59 Intake Total 2121 1375 Output Total 1000 1105 Balance 1121 270 Weight 66.7 kg 69.2 kg General appearance: PRESENT: no acute distress, thin Head exam: PRESENT: atraumatic Neck exam: PRESENT: tracheostomy Respiratory exam: PRESENT: crackles, decreased breath sounds, rales, rhonchi. ABSENT: wheezes Cardiovascular exam: PRESENT: +S1, +S2 Pulses: PRESENT: normal carotid pulses GI/Abdominal exam: PRESENT: other - PEG tube in place Rectal exam: PRESENT: deferred Gentrourinary exam: PRESENT: indwelling catheter Neurological exam: ABSENT: alert, altered, awake, oriented to person, oriented to place, oriented to time, oriented to situation, reflexes normal, abnormal gait, ataxia, CN II-XII grossly intact, motor sensory deficit, normal gait, aphasic, other Skin exam: PRESENT: other - Sacral decubitus Results Laboratory Results: 05/31/17 04:33 05/31/17 04:33 05/31/17 05/31/17 04:33 04:33 WBC 14.0 H RBC 3.44 L Hgb 9.9 L Hct 29.9 L MCV 87 MCH 28.8 MCHC 33.2 RDW 15.8 H Plt Count 379 Seg Neutrophils % 80.4 H Lymphocytes % 9.5 L Monocytes % 9.2 Eosinophils % 0.8 Basophils % 0.1 Absolute Neutrophils 11.2 H Absolute Lymphocytes 1.3 Absolute Monocytes 1.3 Absolute Eosinophils 0.1 Absolute Basophils 0.0 Sodium 142.1 Potassium 3.4 L Chloride 104 Carbon Dioxide 30 Anion Gap 8 BUN 18 Creatinine 0.62 Est GFR ( Amer) > 60 Est GFR (Non-Af Amer) > 60 Glucose 159 H Calcium 9.4 Total Bilirubin 0.4 AST 28 ALT 27 Alkaline Phosphatase 70 C-Reactive Protein 88.6 H Total Protein 6.3 Albumin 2.2 L Impressions: Chest X-Ray 05/23/17 20:08 IMPRESSION: 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 No acute cardiopulmonary disease is appreciated. Assessment & Plan - Time Time Spent with patient: 15-24 minutes Medications reviewed and adjusted accordingly: Yes Anticipated discharge: SNF - Inpatient Certification Based on my medical assessment, after consideration of the patient's comorbidities, presenting symptoms, or acuity I expect that the services needed warrant INPATIENT care.: Yes Medical Necessity: Need for IV Antibiotics - Plan Summary Plan Summary: Acute respiratory failure patient does have a tracheostomy in place. This will be continued with supplemental oxygen as needed. 2. Sepsis secondary to pneumonia, strep bacteremia, VRE UTI, grade 4 sacral decubitus. Patient is currently on linezolid, Flagyl, cefepime and tobramycin nebs. 3. Aspiration pneumonia contributing to sepsis above. Patient has a tracheostomy in place and he is at high risk for recurrent aspiration. 4. Percutaneous endoscopic gastrostomy tube his tube feeding has been resumed. 5. Urinary tract infection, likely associated with a chronic indwelling [place] catheter. 6. Protein calorie malnutrition 7. Stage IV decubitus ulcer with debridement planned. 8. Persistent leukocytosis, with the echocardiogram pending 9. Patient has a PICC line inpatient service in place 10. Prognosis is pretty poor, present on admission 11. Hypokalemia- replace
[2017-05-31] MEDS ORDERED: POTASSIUM CHLORIDE 20 MEQ/15 ML UDCUP PEG ONE (10:51)
[2017-05-31] MEDS: DOCUSATE SODIUM 100 MG CAPSULE PO SCH ×2 (10:54→17:39)
--- NOTE | 2017-05-31 13:14 | RADIOLOGY REPORT (SQ) ---
EXAM DESCRIPTION: PICC INSERTION; GUIDANCE FLUOROSCOPIC COMPLETED DATE/TIME: 05/31/2017 12:45 pm REASON FOR STUDY: NEED FOR VASCULAR ACCESS COMPARISON: AP chest 05/23/2017 FLUOROSCOPY TIME: 0.3 minutes 2 digital radiographic images saved to PACS. TECHNIQUE: Intra-operative images acquired during surgical procedure to evaluate progress. NUMBER OF IMAGES: 2 digital images LIMITATIONS: None. FINDINGS: Intra procedural imaging and fluoro during right PICC placement by Dr. Calles IMPRESSION: Intra procedural imaging and fluoro COMMENT: Quality ID [id number]: Final reports for procedures using fluoroscopy that document radiation exp osure indices, or exposure time and number of fluorographic images (if radiation exposure indices are not available) Please consult full operative report of the attending physician for description of the procedure. TECHNICAL DOCUMENTATION: JOB ID: [id number] [employer]- All Rights Reserved Reading location - IP/workstation name: [facility]
--- NOTE | 2017-05-31 13:14 | RADIOLOGY REPORT (SQ) ---
EXAM DESCRIPTION: PICC INSERTION; GUIDANCE FLUOROSCOPIC COMPLETED DATE/TIME: 05/31/2017 12:45 pm REASON FOR STUDY: NEED FOR VASCULAR ACCESS COMPARISON: AP chest 05/23/2017 FLUOROSCOPY TIME: 0.3 minutes 2 digital radiographic images saved to PACS. TECHNIQUE: Intra-operative images acquired during surgical procedure to evaluate progress. NUMBER OF IMAGES: 2 digital images LIMITATIONS: None. FINDINGS: Intra procedural imaging and fluoro during right PICC placement by Dr. Calles IMPRESSION: Intra procedural imaging and fluoro COMMENT: Quality ID [id number]: Final reports for procedures using fluoroscopy that document radiation exp osure indices, or exposure time and number of fluorographic images (if radiation exposure indices are not available) Please consult full operative report of the attending physician for description of the procedure. TECHNICAL DOCUMENTATION: JOB ID: [id number] [employer]- All Rights Reserved Reading location - IP/workstation name: [facility]-RR
--- NOTE | 2017-05-31 18:46 | XCELERA REPORT ---
[address] [address] Transthoracic Echocardiogram Report Name: MASSIEL MCCORMACK JR Age: 71 yrs Gender: Male : 1945 Patient Status: Inpatient Patient Location: [address] [place] [address] Study Date: 05/31/2017 11:22 AM Height: 72 in Weight: 145 lb BSA: 1.9 m2 Procedure: A complete two-dimensional transthoracic echocardiogram was performed (2D, M-mode, spectral and color flow Doppler). The study was technically difficult with many images being suboptimal in quality. Reason For Study: bacteremia Ordering Physician: EDWINA ESTRELLA Performed By: Pavithra Chávez Interpretation Summary The left ventricular ejection fraction is normal. There is borderline concentric left ventricular hypertrophy. The left ventricle is grossly normal size. Doppler measurements suggest pseudonormalized left ventricular relaxation, which is associated with grade II/IV or mild to moderate diastolic dysfunction Wall motion cannot be accurately commented on, but no definite regional wall motion abnormalities noted. The right ventricle is mildly dilated. The right ventricular systolic function is mildly reduced. The right atrium is mildly dilated. The left atrial size is normal. There is a trace amount of mitral regurgitation There is no mitral valve stenosis. There is moderate aortic stenosis There is a peak gradient of 36 mm of Hg. No aortic regurgitation is present. There is a trace or physiologic amount of tricuspid regurgitation Tricuspid regurgitation jet envelope not well defined to measure RV systolic pressure accurately. The aortic root is not well visualized. The inferior vena cava was not well visualized There is no pericardial effusion. MMode/2D Measurements & Calculations RVDd: 4.5 cm LVIDd: 5.2 cmFS: 30.3 % Ao root diam: 3.8 cm IVSd: 1.00 cm LVIDs: 3.6 cmEDV(Teich): 128.1 ml LVPWd: 1.0 cmESV(Teich): 54.7 ml Ao root area: 11.5 cm2 EF(Teich): 57.3 % LA dimension: 2.9 cm LVOT diam: 2.5 cm LVOT area: 5.1 cm2 Doppler Measurements & Calculations MV E max osmar: MV P1/2t max osmar: Ao V2 max: LV V1 max P.5 cm/sec 75.0 cm/sec 300.6 cm/sec 2.8 mmHg MV A max osmar: MV P1/2t: 84.6 msec Ao max PG: LV V1 max: 97.2 cm/sec MVA(P1/2t): 2.6 cm2 36.1 mmHg 83.9 cm/sec MV E/A: 0.77 MV dec slope: SILVIO(V,D): 1.4 cm2 259.8 cm/sec2 PA V2 max: TR max osmar: 89.8 cm/sec 253.4 cm/sec PA max PG: TR max P.7 mmHg 3.2 mmHg Left Ventricle The left ventricle is grossly normal size. There is borderline concentric left ventricular hypertrophy. The left ventricular ejection fraction is normal. Doppler measurements suggest pseudonormalized left ventricular relaxation, which is associated with grade II/IV or mild to moderate diastolic dysfunction. Wall motion cannot be accurately commented on, but no definite regional wall motion abnormalities noted. Right Ventricle The right ventricle is mildly dilated. The right ventricular systolic function is mildly reduced. Atria The right atrium is mildly dilated. The left atrial size is normal. Interarterial septum not well visualized and not well dopplered. Cannot comment on ASD/PFO presence. Mitral Valve The mitral valve is not well visualized. There is no mitral valve stenosis. There is a trace amount of mitral regurgitation. Aortic Valve The aortic valve is moderately calcified. There is moderate aortic stenosis. There is a peak gradient of 36 mm of Hg. No aortic regurgitation is present. Tricuspid Valve The tricuspid valve is not well visualized secondary to technical limitations. There is no tricuspid stenosis. There is a trace or physiologic amount of tricuspid regurgitation. Tricuspid regurgitation jet envelope not well defined to measure RV systolic pressure accurately. Pulmonic Valve The pulmonic valve is not well visualized. Great Vessels The aortic root is not well visualized. The inferior vena cava was not well visualized. Effusions There is no pericardial effusion. Incidental Findings Consider JAMES if clinically indicated. : EDWINA ESTRELLA > Maria Isabel Guillen
[2017-05-31] MEDS: ATORVASTATIN CALCIUM 40 MG TABLET PEG SCH (22:00)
[2017-06-01] MEDS: IPRATROPIUM/ALBUTEROL 0.5-2.5 MG/3 ML AMPUL NEB SCH ×4 (02:08→19:37)
[2017-06-01] MEDS: POLYVINYL ALCOHOL 1.4% OPH SOLN 15 ML OU SCH ×6 (02:55→21:37)
[2017-06-01 05:06] LABS: ABSOLUTE EOSINOPHILS # (AUTO) 0.2 10^3/uL (0.0-0.6); ABSOLUTE LYMPHOCYTES (AUTO) 1.5 10^3/uL (0.5-4.7); ABSOLUTE MONOCYTES (AUTO) 1.5 10^3/uL (0.1-1.4); ABSOLUTE NEUT (AUTO) 12.7 10^3/uL (1.7-8.2); BASOPHILS % (AUTO) 0.2 % (0-2); EOSINOPHILS % (AUTO) 1.2 % (0-6); HEMATOCRIT 27.8 % (37.9-51.0); HEMOGLOBIN 9.2 g/dL (13.5-17.0); LYMPHOCYTES % (AUTO) 9.6 % (13-45); MEAN CORPUSCULAR HEMOGLOBIN 29.1 pg (27.0-33.4); MEAN CORPUSCULAR VOLUME 88 fl (80-97); MONOCYTES % (AUTO) 9.6 % (3-13); PLATELET COUNT 369 10^3/uL (150-450); RED BLOOD COUNT 3.16 10^6/uL (4.35-5.55); RED CELL DISTRIBUTION WIDTH 15.6 % (11.5-14.0); SEGMENTED NEUTROPHILS % (AUTO) 79.4 % (42-78); TOTAL CELLS COUNTED % (AUTO) 100 %; WHITE BLOOD COUNT 15.9 10^3/uL (4.0-10.5)
[2017-06-01 05:27] LABS: ANION GAP 8 (5-19); BLOOD UREA NITROGEN 18 mg/dL (7-20); CALCIUM 9.3 mg/dL (8.4-10.2); CARBON DIOXIDE 31 mmol/L (22-30); CHLORIDE 103 mmol/L (98-107); GLUCOSE 148 mg/dL (75-110); POTASSIUM 3.5 mmol/L (3.6-5.0); SODIUM 142.1 mmol/L (137-145)
[2017-06-01] MEDS: HEPARIN SOD (PORCINE) 5,000 UNIT/ML 1 ML SYRINGE SUBCUT SCH ×3 (05:59→21:33)
[2017-06-01] MEDS: INSULIN REG, HUMAN 100 UNIT/ML 3 ML VIAL (PYX) SUBCUT PRN (05:59)
[2017-06-01] MEDS: GUAIFENESIN SYRP 200 MG/10 ML UDC PO SCH ×3 (05:59→17:23)
[2017-06-01] MEDS: DILTIAZEM HCL 30 MG TABLET PEG SCH ×4 (06:00→17:25)
[2017-06-01] MEDS: TOBRAMYCIN SULFATE NEB 40 MG/ML 30 ML NEB SCH ×2 (08:37→19:37)
[2017-06-01] MEDS: ACETYLCYSTEINE 20% SOLN 800 MG/4 ML VIAL.NEB NEB SCH ×2 (08:37→19:37)
[2017-06-01] MEDS: DOCUSATE SODIUM 100 MG CAPSULE PO SCH ×2 (09:32→17:30)
[2017-06-01] MEDS: METOPROLOL TARTRATE 25 MG TABLET PEG SCH ×2 (09:32→21:33)
[2017-06-01] MEDS: MULTIVITAMIN ORAL LIQUID 60 ML PO SCH (09:33)
[2017-06-01] MEDS: ACETAMINOPHEN SOLN 325 MG/10.15 ML UDCUP PEG PRN ×3 (09:33→21:45)
[2017-06-01] MEDS: ASCORBIC ACID 500 MG TABLET PEG SCH ×3 (09:33→17:24)
[2017-06-01] MEDS: CHOLECALCIFEROL (D3) 1,000 UNIT TABLET PEG SCH (09:33)
[2017-06-01] MEDS: FOLIC ACID 1 MG TABLET PEG SCH (09:33)
[2017-06-01] MEDS: FERROUS SULFATE LIQUID 300 MG/5 ML UDC PEG SCH ×3 (09:34→17:24)
[2017-06-01] MEDS: POLYETHYLENE GLYCOL 3350 POWDER 17 GM/1 PACKET PEG SCH (09:34)
[2017-06-01] MEDS: LINEZOLID 300 ML IV SCH ×2 (09:37→21:33)
--- NOTE | 2017-06-01 13:27 | PDOC PROGRESS REPORT ---
Subjective Progress Note for:: 06/01/17 Subjective:: 71-year-old gentleman with history of CVA and hypertension and residual left- sided neglect, expressive aphasia status post PEG and tracheostomy who was admitted with sepsis, pneumonia, healthcare associated possibly aspiration, he is currently on broad-spectrum antibiotics. Reason For Visit: PNA UTI Physical Exam Vital Signs: Temp Pulse Resp BP Pulse Ox 98.1 F 71 18 122/76 97 06/01/17 11:19 06/01/17 11:19 06/01/17 11:19 06/01/17 11:19 06/01/17 11:19 Intake & Output 05/31/17 06/01/17 06/02/17 06:59 06:59 06:59 Intake Total 1375 1360 0 Output Total 1105 1225 400 Balance 270 135 -400 Weight 69.2 kg 69.1 kg General appearance: PRESENT: mild distress, thin. ABSENT: well-nourished Mouth exam: PRESENT: dry mucosa Neck exam: PRESENT: tracheostomy. ABSENT: carotid bruit, JVD, lymphadenopathy, thyromegaly Respiratory exam: PRESENT: accessory muscle use, decreased breath sounds, rales , tachypnea Cardiovascular exam: PRESENT: RRR. ABSENT: diastolic murmur, rubs, systolic murmur Pulses: PRESENT: normal dorsalis pedis pul GI/Abdominal exam: PRESENT: other - PEG tube Extremities exam: ABSENT: pedal edema Results Laboratory Results: 06/01/17 04:28 06/01/17 04:28 06/01/17 06/01/17 04:28 04:28 WBC 15.9 H RBC 3.16 L Hgb 9.2 L Hct 27.8 L MCV 88 MCH 29.1 MCHC 33.0 RDW 15.6 H Plt Count 369 Seg Neutrophils % 79.4 H Lymphocytes % 9.6 L Monocytes % 9.6 Eosinophils % 1.2 Basophils % 0.2 Absolute Neutrophils 12.7 H Absolute Lymphocytes 1.5 Absolute Monocytes 1.5 H Absolute Eosinophils 0.2 Absolute Basophils 0.0 Sodium 142.1 Potassium 3.5 L Chloride 103 Carbon Dioxide 31 H Anion Gap 8 BUN 18 Creatinine 0.56 Est GFR ( Amer) > 60 Est GFR (Non-Af Amer) > 60 Glucose 148 H Calcium 9.3 Impressions: Chest X-Ray 04/16/18 20:08 IMPRESSION: 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 No acute cardiopulmonary disease is appreciated. Guidance Fluoroscopy 05/31/17 00:00 IMPRESSION: Intra procedural imaging and fluoro PICC Line Insertion 05/31/17 00:00 IMPRESSION: Intra procedural imaging and fluoro Assessment & Plan - Time Time Spent with patient: 15-24 minutes Medications reviewed and adjusted accordingly: Yes Anticipated discharge: SNF - Inpatient Certification Based on my medical assessment, after consideration of the patient's comorbidities, presenting symptoms, or acuity I expect that the services needed warrant INPATIENT care.: Yes Medical Necessity: Risk of Complication if Not Cared For in Hospital - Plan Summary Plan Summary: 1.Acute respiratory failure patient has a tracheostomy in place. This will be continued with supplemental oxygen as needed. Respiratory status remains tenuous and patient prognosis is very poor. Called her daughter today who is POA and left a message for her to call me back so we can discuss this gentleman CODE STATUS and possibly comfort care status 2. Sepsis secondary to pneumonia, strep bacteremia, VRE UTI, grade 4 sacral decubitus. Patient is currently on linezolid, Flagyl, cefepime and tobramycin nebs with minimal results. 3. Aspiration pneumonia contributing to sepsis above. Patient has a tracheostomy in place and he is at high risk for recurrent aspiration as well as . 4. Percutaneous endoscopic gastrostomy tube -tube feeding has been resumed. 5. Urinary tract infection, likely associated with a chronic indwelling Corona catheter. 6. Protein calorie malnutrition 7. Stage IV decubitus ulcer present on admission s/p debridement 8. Persistent leukocytosis, with echocardiogram negative 10. Prognosis is pretty poor, 11. Hypokalemia- replaced
[2017-06-01] MEDS: ATORVASTATIN CALCIUM 40 MG TABLET PEG SCH (21:37)
[2017-06-02] MEDS: DILTIAZEM HCL 30 MG TABLET PEG SCH ×5 (01:35→23:55)
[2017-06-02] MEDS: POLYVINYL ALCOHOL 1.4% OPH SOLN 15 ML OU SCH ×6 (01:36→22:08)
[2017-06-02] MEDS: GUAIFENESIN SYRP 200 MG/10 ML UDC PO SCH ×5 (01:36→23:55)
[2017-06-02] MEDS: IPRATROPIUM/ALBUTEROL 0.5-2.5 MG/3 ML AMPUL NEB SCH ×4 (01:43→19:53)
[2017-06-02] MEDS: HEPARIN SOD (PORCINE) 5,000 UNIT/ML 1 ML SYRINGE SUBCUT SCH ×3 (05:28→22:03)
[2017-06-02] MEDS: ACETYLCYSTEINE 20% SOLN 800 MG/4 ML VIAL.NEB NEB SCH ×2 (08:20→19:52)
[2017-06-02] MEDS: TOBRAMYCIN SULFATE NEB 40 MG/ML 30 ML NEB SCH ×2 (08:21→19:52)
[2017-06-02] MEDS: MULTIVITAMIN ORAL LIQUID 60 ML PO SCH (09:39)
[2017-06-02] MEDS: ASCORBIC ACID 500 MG TABLET PEG SCH ×3 (09:40→17:31)
[2017-06-02] MEDS: FERROUS SULFATE LIQUID 300 MG/5 ML UDC PEG SCH ×3 (09:40→17:31)
[2017-06-02] MEDS: POLYETHYLENE GLYCOL 3350 POWDER 17 GM/1 PACKET PEG SCH (09:40)
[2017-06-02] MEDS: METOPROLOL TARTRATE 25 MG TABLET PEG SCH ×2 (09:40→22:02)
[2017-06-02] MEDS: CHOLECALCIFEROL (D3) 1,000 UNIT TABLET PEG SCH (09:40)
[2017-06-02] MEDS: DOCUSATE SODIUM 100 MG CAPSULE PO SCH ×2 (09:40→17:31)
[2017-06-02] MEDS: FOLIC ACID 1 MG TABLET PEG SCH (09:40)
[2017-06-02] MEDS: INSULIN REG, HUMAN 100 UNIT/ML 3 ML VIAL (PYX) SUBCUT PRN (13:10)
--- NOTE | 2017-06-02 13:39 | PDOC PROGRESS REPORT ---
Subjective Progress Note for:: 06/02/17 Subjective:: 71-year-old gentleman with history of CVA and hypertension and residual left- sided neglect, expressive aphasia status post PEG and tracheostomy who was admitted with sepsis, pneumonia, healthcare associated possibly aspiration, he is currently on broad-spectrum antibiotics. Reason For Visit: PNA UTI Physical Exam Vital Signs: Temp Pulse Resp BP Pulse Ox 98.5 F 87 17 129/73 H 100 06/02/17 11:45 06/02/17 11:45 06/02/17 11:45 06/02/17 11:45 06/02/17 11:45 Intake & Output 06/01/17 06/02/17 06/03/17 06:59 06:59 06:59 Intake Total 1360 1290 350 Output Total 1225 1200 175 Balance 135 90 175 Weight 69.1 kg 69.2 kg General appearance: PRESENT: mild distress, thin, other - Elderly frail and poorly nourished barely responsive Neck exam: PRESENT: tracheostomy Respiratory exam: PRESENT: accessory muscle use, decreased breath sounds, rales , tachypnea Cardiovascular exam: PRESENT: RRR. 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 No acute cardiopulmonary disease is appreciated. Guidance Fluoroscopy 05/31/17 00:00 IMPRESSION: Intra procedural imaging and fluoro PICC Line Insertion 05/31/17 00:00 IMPRESSION: Intra procedural imaging and fluoro Assessment & Plan - Time Time Spent with patient: 15-24 minutes Medications reviewed and adjusted accordingly: Yes Anticipated discharge: SNF Within: within 72 hours - Plan Summary Plan Summary: 1.Acute respiratory failure patient has a tracheostomy in place. This is remains dismal. Attempts have been made to contact family to no avail. She however apparently did talk to the nursing staff yesterday and still wanting to be full code. Patient respiratory status status is precarious and expect a pretty bad OUTCOME 2. Sepsis secondary to pneumonia, strep bacteremia, VRE UTI, grade 4 sacral decubitus. Patient is currently on linezolid, Flagyl, cefepime and tobramycin nebs with minimal effects 3. Aspiration pneumonia contributing to sepsis above. Patient has a tracheostomy in place and he is at high risk for recurrent aspiration as well as . 4. Percutaneous endoscopic gastrostomy tube -tube feeding has been resumed. 5. Urinary tract infection, likely associated with a chronic indwelling Corona catheter. 6. Protein calorie malnutrition 7. Stage IV decubitus ulcer present on admission s/p debridement. Continue local wound care 8. Persistent leukocytosis, with echocardiogram negative 10. Prognosis is pretty poor, 11. Hypokalemia- replaced Sputum culture now yielding Pseudomonas, methicillin-resistant Staphylococcus aureus and Streptococcus. Wound culture is yielding vancomycin-resistant E faecalis and MRSA. Urine cultures yielded vancomycin resistant enterococcus on blood culture yielded Staphylococcus capitis
[2017-06-02] MEDS ORDERED: NORMAL SALINE 10 ML SDV (AFTER EACH USE) IV PRN (16:54)
[2017-06-02] MEDS: ATORVASTATIN CALCIUM 40 MG TABLET PEG SCH (22:02)
[2017-06-02] MEDS: NORMAL SALINE 10 ML SDV (SCHEDULED) IV SCH (22:03)
--- NOTE | 2017-06-02 23:13 | Palliative Consultation Report ---
Consultation From:: FLACO GONZALES - [facility] HPI: Palliative Care Visit 06/02/17 3:10- 3:45 Appreciate palliative consult. Mr. Calles has suffered a stroke about a year ago. He has been in various facilities with no improvement. He now has trach and PEG tube. he is nonresponsive but does open his eyes and looks around , but dos not seem to focus well. He has been admitted with symptoms of increased respiratory distress, and worsening of decubitus on sacral area, which is stage 4 and has positive cultures. He is growing several pathogens in Sputum, wound cultures and urine. He is not seeming to improve much with antibiotics and end of life care needs to be considered. Mr. Calles daughter lives in [place] and she travels a lot for her job. She has not been able to come to see her father this hospitalization. After several days of inquiring, I was finally able to get Mr. Calles' daughter's telephone number. When I called we talked for some time about his declining condition, many areas of infection and generalized decline. She does not want her father to suffer and is agreeable to DNR status. However, she says she has to talk it over with patients brother, sister and her own mother. She realizes she is his next of kin and will be able to make these decisions. She is trying to get to be POA to get his benefits from [employer] for his burial benefits, and discussed hoping he stays alive long enough for her to do that. I told her that could take months and I don't think he will go that long before he has a cardiac arrest. We discussed that [employer] benefits for burial are not that much anyway and certainly not enough to keep him alive on ventilator. I did explain that with detention ventilator h would have to go back to LTAC and it would be very difficult for family to visit and very miserable for him, should he survive CPR in the first place. DaughterPamela is interested in having patient transferred to hospice care facility, the closest one with bed available. We talked about the treatment at hospice would be comfort care and that hospice does nothing to prolong life ( lie IV antibiotics or ventilators....or to hasten . Her questions about his condition and care needed for end of life were answered. Onset: Just prior to arrival Onset/Duration: Gradual - Patient brought to hospital from SNF due to pneumonia , infection in sacral decubitus and general decline with sepsis. Past Medical History(Consults) - General Information Source: Relative, [facility] Records Home Medications: Acetaminophen [Tylenol 325 mg Tablet] 650 mg PO Q4HP PRN 05/24/17 Amlodipine Besylate [Norvasc 10 mg Tablet] 10 mg PEG DAILY 05/24/17 Ascorbic Acid [Vitamin C 500 mg Tablet] 500 mg PEG DAILY 05/24/17 Atorvastatin Calcium [Lipitor 40 mg Tablet] 40 mg PEG QHS 05/24/17 Cholecalciferol (Vitamin D3) [Vitamin D3] 2,000 unit PEG DAILY 05/24/17 Dextran 70/Hypromellose [Artificial Tears] 1 drop OU Q4 05/24/17 Diltiazem HCl [Cardizem 30 mg Tablet] 30 mg PEG Q6 05/24/17 Docusate Sodium [Colace 100 mg Capsule] 100 mg PEG BID 05/24/17 Folic Acid [Folvite 1 mg Tablet] 1 mg PEG DAILY 05/24/17 Guaifenesin [Tussin] 10 ml PEG Q6HP PRN 05/24/17 Insulin Lispro [Humalog Insulin (Lispro) 100 unit/mL] 0 unit SQ .SLIDING SCALE 05/24/17 Ipratropium/Albuterol Sulfate [Iprat-Albut 0.5-3(2.5) mg/3 ml] 3 ml NEB Q4HP PRN 05/24/17 Metoprolol Tartrate [Lopressor 25 mg Tablet] 25 mg PO Q12 05/24/17 Multivitamin [Tab-A-Edwige (Multiple Vitamin) Tablet] 1 tab PEG DAILY 05/24/17 Nystatin [Mycostatin 500,000 Unit/5 ml Susp Udcup] 5 ml PO QID 05/24/17 Pantoprazole Sodium [Protonix] 40 mg PEG DAILY 05/24/17 Polyethylene Glycol 3350 [Miralax Powder 17 gm/Packet] 17 gm PEG DAILY 05/24/17 Simethicone [Mylicon 80 mg Chewable Tablet] 80 mg PEG Q6HP PRN 05/24/17 Allergies/Adverse Reactions: Penicillins Allergy (Verified 05/24/17 04:18) - Social History Lives with: Skilled Nursing Family History: CVA, Other - Unknown as patient completely unresponsive. Parental Family History Reviewed: No Children Family History Reviewed: No Sibling(s) Family History Reviewed.: No Smoking Status: Former Smoker Frequency of Alcohol Use: None Hx Recreational Drug Use: Yes Drugs: Cocaine Hx Prescription Drug Abuse: No - Past Medical History Cardiac Medical History: Reports: Hx Hypertension Pulmonary Medical History: Reports: Hx Bronchitis, Hx COPD Endocrine Medical History: Reports: None Renal/ Medical History: Reports: None. Denies: Hx Peritoneal Dialysis Malignancy Medical History: Reports None GI Medical History: Reports: None Musculoskeltal Medical History: Reports Other - Left hemiparesis, with global muscular atrophy Skin Medical History: Reports None Psychiatric Medical History: Reports: None Traumatic Medical History: Reports: None Infectious Medical History: Reports: None, Hx MRSA Hematology: Reports: None, Other - Tracheostomy - Surgical History Past Surgical History: Reports: Other - tracheostomy, PEG Review of systems ROS unobtainable: due to mental statu Ojective:Exam Vital Signs: Temp Pulse Resp BP Pulse Ox 98.3 F 104 H 22 H 141/87 H 99 06/02/17 19:17 06/02/17 19:53 06/02/17 19:53 06/02/17 19:17 06/02/17 19:53 Intake & Output 06/01/17 06/02/17 06/03/17 06:59 06:59 06:59 Intake Total 1360 1290 1010 Output Total 1225 1200 475 Balance 135 90 535 Weight 69.1 kg 69.2 kg - General General Appearance: Unresponsive In distress: None - Respiratory Respiratory Status: Other Chest Status: No pleuritic chest pain - Tracheostomy Breath sounds: Rhonchi - Cardiovascular Rhythm: Irregularly irregular - Neurological Cognition: Other - Nonresponsive Objective-Diagnostic Laboratory: 06/01/17 04:28 06/01/17 04:28 05/28/17 13:40 Blood Blood Culture - Final NO GROWTH IN 5 DAYS 05/28/17 12:34 Blood Blood Culture - Final NO GROWTH IN 5 DAYS Plan and Recommendation Plan and Recommendation: As above, long discussion with patient's daughter. She is ready to make decision to change code status to DNR but she wants to discuss that and transfer to hospice with her family members. I told her she could take her time deciding about hospice but we need decision about DNR before patient has arrest. She says she understands. I gave Pamela my cell phone number and told her to call me at anytime with her decision and also to tell family members that they are welcome to call me at any time if they have questions or concerns. As of time of this note, I have not heard back from daughter or other family members. Will follow. Total time 55 min with consultation nursing, discussion with daughter, etc. - Time Spent with Patient Time spent with patient: 40 to 60 Minutes
[2017-06-03] MEDS: POLYVINYL ALCOHOL 1.4% OPH SOLN 15 ML OU SCH ×5 (01:52→17:31)
[2017-06-03] MEDS: IPRATROPIUM/ALBUTEROL 0.5-2.5 MG/3 ML AMPUL NEB SCH ×4 (02:21→20:10)
[2017-06-03] MEDS: DILTIAZEM HCL 30 MG TABLET PEG SCH ×3 (06:21→17:31)
[2017-06-03] MEDS: HEPARIN SOD (PORCINE) 5,000 UNIT/ML 1 ML SYRINGE SUBCUT SCH ×2 (06:22→14:03)
[2017-06-03] MEDS: GUAIFENESIN SYRP 200 MG/10 ML UDC PO SCH ×3 (06:24→17:37)
[2017-06-03 07:23] LABS: ABSOLUTE EOSINOPHILS # (AUTO) 0.1 10^3/uL (0.0-0.6); ABSOLUTE LYMPHOCYTES (AUTO) 1.6 10^3/uL (0.5-4.7); ABSOLUTE MONOCYTES (AUTO) 1.3 10^3/uL (0.1-1.4); ABSOLUTE NEUT (AUTO) 15.3 10^3/uL (1.7-8.2); BASOPHILS % (AUTO) 0.1 % (0-2); EOSINOPHILS % (AUTO) 0.7 % (0-6); HEMATOCRIT 30.2 % (37.9-51.0); HEMOGLOBIN 9.7 g/dL (13.5-17.0); MEAN CORPUSCULAR HEMOGLOBIN 28.4 pg (27.0-33.4); MEAN CORPUSCULAR VOLUME 89 fl (80-97); PLATELET COUNT 384 10^3/uL (150-450); RED BLOOD COUNT 3.41 10^6/uL (4.35-5.55); RED CELL DISTRIBUTION WIDTH 16.3 % (11.5-14.0); SEGMENTED NEUTROPHILS % (AUTO) 83.2 % (42-78); TOTAL CELLS COUNTED % (AUTO) 100 %; WHITE BLOOD COUNT 18.3 10^3/uL (4.0-10.5)
[2017-06-03] MEDS: TOBRAMYCIN SULFATE NEB 40 MG/ML 30 ML NEB SCH (07:48)
[2017-06-03] MEDS: ACETYLCYSTEINE 20% SOLN 800 MG/4 ML VIAL.NEB NEB SCH (07:48)
[2017-06-03 07:52] LABS: ANION GAP 6 (5-19); BLOOD UREA NITROGEN 16 mg/dL (7-20); CALCIUM 9.6 mg/dL (8.4-10.2); CARBON DIOXIDE 37 mmol/L (22-30); CHLORIDE 100 mmol/L (98-107); GLUCOSE 163 mg/dL (75-110); POTASSIUM 3.6 mmol/L (3.6-5.0); SODIUM 143.3 mmol/L (137-145)
--- NOTE | 2017-06-03 10:58 | PDOC PROGRESS REPORT ---
Subjective Progress Note for:: 06/03/17 Subjective:: 71-year-old gentleman with history of CVA and hypertension and residual left- sided neglect, expressive aphasia status post PEG and tracheostomy who was admitted with sepsis, pneumonia, healthcare associated possibly aspiration, he is currently on broad-spectrum antibiotics. Reason For Visit: PNA UTI Physical Exam Vital Signs: Temp Pulse Resp BP Pulse Ox 97.8 F 97 18 151/85 H 99 06/03/17 07:19 06/03/17 07:56 06/03/17 07:56 06/03/17 07:19 06/03/17 07:56 Intake & Output 06/02/17 06/03/17 06/04/17 06:59 06:59 06:59 Intake Total 1290 1040 Output Total 1200 1475 Balance 90 -435 Weight 69.2 kg 69 kg General appearance: PRESENT: thin - ill looking Mouth exam: PRESENT: dry mucosa Neck exam: PRESENT: tracheostomy Respiratory exam: PRESENT: accessory muscle use, tachypnea GI/Abdominal exam: PRESENT: normal bowel sounds, soft. ABSENT: distended, guarding, mass, organolmegaly, rebound, tenderness Rectal exam: PRESENT: deferred Neurological exam: PRESENT: other - unresponsive Results Laboratory Results: 06/03/17 06:30 06/03/17 06:30 06/03/17 06/03/17 06:30 06:30 WBC 18.3 H RBC 3.41 L Hgb 9.7 L Hct 30.2 L MCV 89 MCH 28.4 MCHC 32.0 RDW 16.3 H Plt Count 384 Seg Neutrophils % 83.2 H Lymphocytes % 9.0 L Monocytes % 7.0 Eosinophils % 0.7 Basophils % 0.1 Absolute Neutrophils 15.3 H Absolute Lymphocytes 1.6 Absolute Monocytes 1.3 Absolute Eosinophils 0.1 Absolute Basophils 0.0 Sodium 143.3 Potassium 3.6 Chloride 100 Carbon Dioxide 37 H Anion Gap 6 BUN 16 Creatinine 0.52 Est GFR ( Amer) > 60 Est GFR (Non-Af Amer) > 60 Glucose 163 H Calcium 9.6 05/28/17 13:40 Blood Blood Culture - Final NO GROWTH IN 5 DAYS 05/28/17 12:34 Blood Blood Culture - Final NO GROWTH IN 5 DAYS Impressions: Chest X-Ray 05/23/17 20:08 IMPRESSION: 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 No acute cardiopulmonary disease is appreciated. Guidance Fluoroscopy 05/31/17 00:00 IMPRESSION: Intra procedural imaging and fluoro PICC Line Insertion 05/31/17 00:00 IMPRESSION: Intra procedural imaging and fluoro Assessment & Plan - Time Time Spent with patient: 15-24 minutes Medications reviewed and adjusted accordingly: Yes Anticipated discharge: SNF - Inpatient Certification Based on my medical assessment, after consideration of the patient's comorbidities, presenting symptoms, or acuity I expect that the services needed warrant INPATIENT care.: Yes Medical Necessity: Need for IV Antibiotics - Plan Summary Plan Summary: 1.Acute respiratory failure patient has a tracheostomy in place. Prognosis remains dismal. Attempts have been made to contact family to no avail. She however apparently did talk to the nursing staff yesterday and still wanting to be full code. Patient respiratory status status is precarious and expect a pretty bad OUTCOME 2. Sepsis secondary to pneumonia, strep bacteremia, VRE UTI, grade 4 sacral decubitus. Patient is off linezolid, Flagyl, cefepime and on tobramycin nebs with minimal effects 3. Aspiration pneumonia contributing to sepsis above. Patient has a tracheostomy in place and he is at high risk for recurrent aspiration as well as . 4. Percutaneous endoscopic gastrostomy tube -tube feeding has been resumed. 5. Urinary tract infection, likely associated with a chronic indwelling Corona catheter. 6. Protein calorie malnutrition 7. Stage IV decubitus ulcer present on admission s/p debridement. Continue local wound care 8. Persistent leukocytosis, with echocardiogram negative. Will repeat CXR 10. Prognosis is pretty poor, 11. Hypokalemia- replaced Sputum culture yielded Pseudomonas, methicillin-resistant Staphylococcus aureus and Streptococcus. Wound culture yielding vancomycin-resistant E faecalis and MRSA. Urine cultures yielded vancomycin resistant enterococcus and blood culture yielded Staphylococcus capitis
[2017-06-03] MEDS: POLYETHYLENE GLYCOL 3350 POWDER 17 GM/1 PACKET PEG SCH (11:15)
[2017-06-03] MEDS: FOLIC ACID 1 MG TABLET PEG SCH (11:17)
[2017-06-03] MEDS: CHOLECALCIFEROL (D3) 1,000 UNIT TABLET PEG SCH (11:18)
[2017-06-03] MEDS: ASCORBIC ACID 500 MG TABLET PEG SCH ×3 (11:18→17:31)
[2017-06-03] MEDS: METOPROLOL TARTRATE 25 MG TABLET PEG SCH (11:19)
[2017-06-03] MEDS: FERROUS SULFATE LIQUID 300 MG/5 ML UDC PEG SCH ×3 (11:20→17:38)
[2017-06-03] MEDS: MULTIVITAMIN ORAL LIQUID 60 ML PO SCH (11:20)
[2017-06-03] MEDS: DOCUSATE SODIUM 100 MG CAPSULE PO SCH ×2 (11:21→17:40)
[2017-06-03] MEDS: NORMAL SALINE 10 ML SDV (SCHEDULED) IV SCH (12:08)
[2017-06-03] MEDS: INSULIN REG, HUMAN 100 UNIT/ML 3 ML VIAL (PYX) SUBCUT PRN (12:35)
--- NOTE | 2017-06-03 17:08 | Progress Note ---
Provider Note Provider Note: Palliative Care Follow up visit: After long discussion with Mr. Calles daughter, Pamela, yesterday, she did talk with her mother and other family members. She said her mother and Uncle were able to come to [facility] today to see patient. They are now all in agreement for patient to be DNR, be changed to Comfort Measures and be transferred to a hospice care facility when a bed is available. They would prefer that patient be transferred to the nearest facility, and that would be [facility] but they do not have any beds available at this time. Information about this patient was sent to them per planner intern. There also are no beds available at the [facility] in [place]. I informed Pamela of this during a call at 3:30PM and told her he could be kept comfortable at [facility] until Tuesday when a bed may become available. I assured her the doctors and nurses will treat him if he shows signs of discomfort or anxiety. We discussed that IVs and IV antibiotics will be discontinued and other care for wounds, comfort and physical and respiratory hygiene will be continued. RN caring for patient today has already relayed this information to the hospitalist as Pamela called her also. I will let glass sagger liason know of need for bed at [facility] on Tuesday if bed does not become available at [facility]. Pamela did not say if she will be coming from [place] to see her father, but I told her I would be available by telephone if she needs me. Mr. Calles continues to open his eyes but does not seem to focus. He has no sign of increased pain or anxiety at this time. Respirations are regular but congested. Heart rate is irregular. I would recommend stopping all meds via IV and PEG tube, discontinue glucose monitoring, Reduce PEG feedings to 30ml /hour to later stop at hospice and of course,Morphine 1 mg q 2 hours IV or subcutaneous prn pain. He may also need Lorazepam IV or subcutaneous for anxiety or agitation. He has tylenol ordered for fever. Appreciate the gentle care this man is getting in these difficult days for both patient and family. It has been hard for them to get to this place. I am afraid that stopping PEG tube feedings all together may be too much for them to take emotionally and would do this slowly when they get a better peace with the idea of comfort care. I have encouraged them to call me if questions or concerns. Thank you so much.
--- NOTE | 2017-06-03 18:27 | Progress Note ---
Provider Note Provider Note: Patient made comfort care appropriately. All active orders dc
[2017-06-03] MEDS: LORAZEPAM INJ 2 MG/1 ML VIAL IV PRN ×2 (20:38→23:04)
[2017-06-03] MEDS: MORPHINE SULFATE 10 MG/ML INJ IV PRN (20:38)
[2017-06-04] MEDS: MORPHINE SULFATE 10 MG/ML INJ IV PRN ×3 (00:39→09:02)
[2017-06-04] MEDS: IPRATROPIUM/ALBUTEROL 0.5-2.5 MG/3 ML AMPUL NEB SCH ×2 (01:36→07:51)
[2017-06-04] MEDS: LORAZEPAM INJ 2 MG/1 ML VIAL IV PRN ×5 (01:57→12:01)
[2017-06-04] MEDS ORDERED: LORAZEPAM INJ 2 MG/1 ML VIAL IV ONE (03:30)
[2017-06-04] MEDS ORDERED: MORPHINE SULFATE 10 MG/ML INJ IV ONE (04:00)
[2017-06-04 12:09] VITALS: BP 111/73
--- NOTE | 2017-06-04 12:31 | PDOC PROGRESS REPORT ---
Subjective Progress Note for:: 06/04/17 Subjective:: 71-year-old gentleman with history of CVA and hypertension and residual left- sided neglect, expressive aphasia status post PEG and tracheostomy who was admitted with sepsis, pneumonia, healthcare associated possibly aspiration, he is currently on broad-spectrum antibiotics. Patient has been made DNR with comfort care Reason For Visit: PNA UTI Physical Exam Vital Signs: Temp Pulse Resp BP Pulse Ox 98.8 F 123 H 38 H 111/73 97 06/04/17 11:46 06/04/17 11:46 06/04/17 11:46 06/04/17 11:46 06/04/17 11:46 Intake & Output 06/03/17 06/04/17 06/05/17 06:59 06:59 06:59 Intake Total 1040 760 Output Total 1475 1300 Balance -435 -540 Weight 69 kg 68.7 kg General appearance: PRESENT: no acute distress, thin - gaunt, unresponsive Mouth exam: PRESENT: dry mucosa Respiratory exam: PRESENT: accessory muscle use, crackles, decreased breath sounds, rales, retraction Cardiovascular exam: PRESENT: tachycardia Rectal exam: PRESENT: deferred Psychiatric exam: PRESENT: other - sedated Skin exam: PRESENT: other - Sacral decubitus stage IV Results Laboratory Results: 06/03/17 06:30 06/03/17 06:30 Impressions: Chest X-Ray 05/23/17 20:08 IMPRESSION: 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 No acute cardiopulmonary disease is appreciated. Guidance Fluoroscopy 05/31/17 00:00 IMPRESSION: Intra procedural imaging and fluoro PICC Line Insertion 05/31/17 00:00 IMPRESSION: Intra procedural imaging and fluoro Assessment & Plan - Time Time Spent with patient: Less than 15 minutes Medications reviewed and adjusted accordingly: Yes Anticipated discharge: Hospice Within: within 48 hours - Plan Summary Plan Summary: 1.Acute respiratory failure patient has a tracheostomy in place. 2. Sepsis secondary to pneumonia, strep bacteremia, VRE UTI, grade 4 sacral decubitus. 3. Aspiration pneumonia contributing to sepsis above. 4. Percutaneous endoscopic gastrostomy tube - 5. Urinary tract infection, likely associated with a chronic indwelling Corona catheter. 6. Protein calorie malnutrition 7. Stage IV decubitus ulcer present on admission s/p debridement. 8. Persistent leukocytosis, with echocardiogram negative. 10. Prognosis is pretty poor, 11. Hypokalemia- replaced Sputum culture yielded Pseudomonas, methicillin-resistant Staphylococcus aureus and Streptococcus. Wound culture yielding vancomycin-resistant E faecalis and MRSA. Urine cultures yielded vancomycin resistant enterococcus and blood culture yielded Staphylococcus capitis 12 DO NOT RESUSCITATE with comfort care
--- NOTE | 2017-06-04 14:44 | Death Summary ---
Summary Date : 06/04/17 Time of :: 12:44 Autopsy: No Resuscitation Status: Comfort Measures Only Primary Care Provider: Dr. Gallagher - Final Diagnosis (1) Acute and chronic respiratory failure Is this a current diagnosis for this admission?: Yes (2) Aspiration pneumonia Is this a current diagnosis for this admission?: Yes (3) Sepsis Is this a current diagnosis for this admission?: Yes (4) Metabolic alkalosis Is this a current diagnosis for this admission?: Yes (5) Stage IV decubitus ulcer Is this a current diagnosis for this admission?: Yes (6) UTI (urinary tract infection) Is this a current diagnosis for this admission?: Yes Hospital Course:: MASSIEL MCCORMACK JR is a 71 year old male with a past medical history of hypertension CVA with residual left-sided neglect, expressive aphasia, status post PEG and trach who is a long-term shelter resident presenting with fever and copious tracheostomy secretions. In the emergency room he is nonverbal and unable to provide history. Workup revealed a leukocytosis and contraction alkalosis. He started on empiric antibiotics and IV fluids and referred the hospitalist for admission. This patient was admitted with sepsis likely aspiration pneumonia as well as infected sacral decubitus ulcer and a urinary tract infection. Patient was started on broad-spectrum antibiotics. His cultures did grow multiple organisms. Patient's condition was pretty precarious and spite all measures he failed to respond to management. He had been admitted with tracheostomy in place. Patient condition worsen and after discussion with family the decided to make him a DO NOT RESUSCITATE as well as comfort care. Patient succumbed on June 04 at about 1244
--- NOTE | 2017-06-07 17:54 | OPERATIVE REPORT E ---
Operative Report NAME: MASSIEL MCCORMACK : 1945 AGE: 71Y DATE OF SURGERY: 05/31/2017 ROOM: 313 PREOPERATIVE DIAGNOSES: 1. SEPSIS. 2. MULTIPLE COMORBIDITIES. POSTOPERATIVE DIAGNOSES: 1. SEPSIS. 2. MULTIPLE COMORBIDITIES. OPERATIONS: 1. Ultrasound evaluation of the right brachial vein. 2. PICC line on the real-time ultrasound guidance in the right brachial vein. 3. Interpretation. SURGEON: BOOGIE MCCORMACK M.D. PROCEDURE: After verifying the procedure and having obtained an informed consent from the patient's daughter, he was taken to the confectionery laboratory manager. The right arm was selected, as the veins on the left were extremely small. Overall, the patient is in a debilitated state. His family has desired that everything be done for him. The right upper extremity was prepared with chlorhexidine and draped out in sterile linen. A venous tourniquet was lightly placed at the axilla. The sterile sheath ultrasound probe was used to evaluate for basilic vein; there was none. The brachial vein was selected. Local anesthesia infiltrated. Percutaneous access into the brachial vein was obtained using a micropuncture needle and then guidewire. This was done under real-time ultrasound guidance. This was followed by insertion of the PICC line guidewire. Externally, the light venous tourniquet was removed. The PICC line was tailored to an appropriate length and placed, using the peel-away sheath, such that the tip was just at the superior vena cava/right atrial juncture. There was easy egress of blood and ingress of heparinized solution. The catheter was anchored using the contained fixating device and observing sterile technique. This included insertion of a Biopatch at the exit. The procedure was concluded. FINDINGS: The patient overall is extremely thin and debilitated. The veins on the left were almost nonexistent. On the right, the basilic was not to be found, and may have been utilized previously. Fortunately, one of paired brachial veins was about 3 mm and was susceptible to access. It was used successfully for PICC line insertion. DICTATING PHYSICIAN: BOOGIE MCCORMACK M.D. [id number] PHY#: [id number] ID: [id number] JOB#: [id number] ACCT: [id number] cc:BOOGIE MCCORMACK M.D. >
== END 2017-06-04 14:11 | DRG 853 ==
LOC: ER 19:50 → EH 23:36 → 3W 05-24 03:06
PROVIDERS: ADMIT Internal Medicine; ATTEND Internal Medicine
PROC: 0JB70ZZ Excision of Back Subcutaneous Tissue and Fascia, Open Approach (ICD-10-PCS; principal; 2017-05-26)
PROC: 30233N1 Transfusion of Nonautologous Red Blood Cells into Peripheral Vein, Percutaneous Approach (ICD-10-PCS; 2017-05-28)
PROC: 02HV33Z Insertion of Infusion Device into Superior Vena Cava, Percutaneous Approach (ICD-10-PCS; 2017-05-31)
PROC: B518ZZA Fluoroscopy of Superior Vena Cava, Guidance (ICD-10-PCS; 2017-05-31)
DX: A41.9 Sepsis, unspecified organism (principal); L89.154 Pressure ulcer of sacral region, stage 4; J96.21 Acute and chronic respiratory failure with hypoxia; J69.0 Pneumonitis due to inhalation of food and vomit; E43 Unspecified severe protein-calorie malnutrition; Z66 Do not resuscitate; T83.511A Infection and inflammatory reaction due to indwelling urethral catheter, initial encounter; N39.0 Urinary tract infection, site not specified; E87.3 Alkalosis; I69.854 Hemiplegia and hemiparesis following other cerebrovascular disease affecting left non-dominant side; R40.3 Persistent vegetative state; E87.6 Hypokalemia; I10 Essential (primary) hypertension; B95.2 Enterococcus as the cause of diseases classified elsewhere; Z16.21 Resistance to vancomycin; A49.02 Methicillin resistant Staphylococcus aureus infection, unspecified site; J43.9 Emphysema, unspecified; I69.328 Other speech and language deficits following cerebral infarction; Z93.1 Gastrostomy status; Z93.0 Tracheostomy status; Z68.20 Body mass index [BMI] 20.0-20.9, adult; Z79.4 Long term (current) use of insulin; Z79.899 Other long term (current) drug therapy
CPT/HCPCS: 300; 36415; 36430; 36569; 71045; 76937; 77001; 80048; 80053; 80202; 81001; 82565; 82607; 82728; 82746; 82803; 82962; 83540; 83550; 83605; 83735; 84100; 85025; 85027; 85610; 86140; 86850; 86900; 86901; 86920; 87040; 87070; 87077; 87086; 87088; 87186; 87205; 93005; 93010; 93306; 94640; 96361; 96365; 99285; C1752; J0692; J1642; J1644; J1815; J1940; J2020; J2060; J2250; J2270; J2704; J3370; J3490; J7030; J7620; J7685; P9016